=== PATIENT | male | born 1950 | race Caucasian/White ===

== ENCOUNTER 2019-06-13 15:04 | Inpatient (IN) | payer MEDICARE ==
[~2019-06-13] VITALS: Ht 177.8 cm; Wt 136.5 kg
[~2019-06-13 15:04] MED LIST: ASPI-630 PO; BENA40TA3 PO; CLON0.2T PO; DILT120C99 PO; FINA5TAB4 PO; GLYB5TAB3 PO; HYDR-2145 PO; INSU300I SQ; LOVA40TA2 PO; METF10007 PO; METO-247 PO; PIOG15TA42 PO; TAMS0.4C2 PO; VENL75TA PO
[2019-06-13 15:20] VITALS: BP 110/70
[2019-06-13] MEDS ORDERED: IV DEXTROSE 5% 250 ML BAG. IV PRN (16:15)
[2019-06-13] MEDS ORDERED: MAG HYDROX/ALUMINUM HYD/SIMETH 30 ML ORAL.SUSP PO PRN (16:15)
[2019-06-13] MEDS ORDERED: ZOLPIDEM 5 MG TABLET. PO PRN (16:15)
[2019-06-13] MEDS ORDERED: oxyCODONE IR 5 MG TABLET PO PRN (16:15)
[2019-06-13] MEDS ORDERED: MORPHINE SULFATE 2 MG/ML VIAL. IV PRN (16:15)
[2019-06-13] MEDS ORDERED: DEXTROSE 50% 25 GM / 50ML DISP.SYRIN. IV PRN (16:15)
[2019-06-13] MEDS ORDERED: ACETAMINOPHEN 325 MG TABLET. PO PRN (16:15)
[2019-06-13] MEDS ORDERED: MAGNESIUM HYDROXIDE 2,400 MG/30 ML ORAL.SUSP. PO PRN (16:15)
[2019-06-13] MEDS ORDERED: VANCOMYCIN 1GM IVPB FOR OMNI 250 ML IV ONE (16:15)
[2019-06-13] MEDS ORDERED: CHLO25TA2 PO (16:35)
[2019-06-13] MEDS ORDERED: HYDR-2868 PO (16:35)
[2019-06-13] MEDS ORDERED: CARV25TA2 PO (16:35)
[2019-06-13] MEDS ORDERED: AMLO10TA8 PO (16:36)
[2019-06-13] MEDS ORDERED: CLOP75TA PO (16:36)
--- NOTE | 2019-06-13 16:42 | PDOC1 ---
History and Physical Date of Admission Date of Admission DATE: 06/13/19 TIME: 16:37 Identification/Chief Complaint Chief Complaint sent by PCP from clinic bec of DM foot wound Source Source: Caregiver, Chart review, Patient History of Present Illness History of Present Illness HE is a 68 yo white male, DM, HTN, lipdis, hgba1c 7 many mos ago, non healing dm foot wound rt and is bleeding, no fevers, foot is foul smelling, There is a concern if deep to the bone, Known to wound care some yrs back, no recnt abx us e, Sent by PCP Dr Acosta/king josie as needs vasc sx, ID, even amputation or some fort of debridement. Past Medical History Cardiovascular: HTN, Hyperlipidemia Endocrine: Diabetes Past Surgical History Past Surgical History: No pertinent history Family History Family History: Hypertension Social History Smoke: No ALCOHOL: none Drugs: None Current Medications Current Medications Current Medications Al Hydroxide/Mg Hydroxide (Mylanta Plus Xs) 30 ml PRN Q3HRS PRN PO HEARTBURN / GAS; Start 06/13/19 at 16:15 Zolpidem Tartrate (Ambien) 5 mg PRN QHS PRN PO INSOMNIA, MAY REPEAT IN 1HR; Start 06/13/19 at 16:15 Morphine Sulfate (Morphine Sulfate) 1 mg PRN Q1HR PRN IV PAIN; Start 06/13/19 at 16:15 Oxycodone HCl (Roxicodone) 10 mg PRN Q4HRS PRN PO MODERATE PAIN, SEVERE PAIN; Start 06/13/19 at 16:15 Acetaminophen (Tylenol) 650 mg PRN Q6HRS PRN PO Headaches, Temp > 101.5F; Start 06/13/19 at 16:15 Docusate Sodium (Colace) 100 mg BID PO ; Start 06/13/19 at 21:00 Magnesium Hydroxide (Milk Of Magnesia) 2,400 mg PRN Q12HR PRN PO CONSTIPATION; Start 06/13/19 at 16:15 Enoxaparin Sodium (Lovenox 40mg Syringe) 40 mg Q24H SQ ; Start 06/13/19 at 17:00 Insulin Human Lispro (HumaLOG) 0-9 UNITS TIDWMEALS SQ ; Start 06/13/19 at 17:00 Dextrose (Dextrose 50%-Water Syringe) 12.5 gm PRN Q15MIN PRN IV SEE COMMENTS; Start 06/13/19 at 16:15 Dextrose (Iv Dextrose 5%) 250 ml PRN Q15MIN PRN IV SEE COMMENTS; Start 06/13/19 at 16:15 Vancomycin HCl 250 ml @ 250 mls/hr 1X ONCE IV ; Start 06/13/19 at 16:15; Stop 06/13/19 at 17:14 Meropenem 1 gm/ Sodium Chloride 100 ml @ 200 mls/hr Q8HRS IV ; Start 06/13/19 at 22:00; Status UNV Active Scripts Active Reported Clopidogrel (Clopidogrel Bisulfate) 75 Mg Tablet 75 Mg PO DAILY Amlodipine Besylate 10 Mg Tablet 10 Mg PO DAILY Chlorthalidone 25 Mg Tablet 25 Mg PO DAILY Carvedilol 25 Mg Tablet 25 Mg PO BID Hydralazine Hcl 25 Mg Tablet 25 Mg PO BID Toujeo Solostar (Insulin Glargine,Hum.rec.anlog) 300 Unit/1 Ml Insuln.pen 80 Unit SQ HS Tamsulosin Hcl 0.4 Mg Cap.er.24h 0.4 Mg PO DAILY Finasteride 5 Mg Tablet 5 Mg PO DAILY Venlafaxine Hcl 75 Mg Tablet 75 Mg PO BID Metformin Hcl 1,000 Mg Tablet 1,000 Mg PO BID Lovastatin 40 Mg Tablet 20 Mg PO HS Diltiazem 24HR Cd (Diltiazem Hcl) 120 Mg Cap.er.24h 120 Mg PO DAILY Clonidine Hcl 0.2 Mg Tablet 0.2 Mg PO TID Benazepril Hcl 40 Mg Tablet 40 Mg PO DAILY Allergies Allergies: Coded Allergies: Penicillins (Verified Allergy, Severe, Anaphylaxis, 07/17/14) ROS Review of System denies fever, some rt foot pain but all else neg 14 pt reviewed with him Physical Exam General: Alert, Oriented X3, Cooperative, No acute distress HEENT: Atraumatic, PERRLA, EOMI Lungs: Clear to auscultation, Normal air movement Heart: S1S2, RRR, no thrills, no rubs, no gallops, no murmurs Cardiovascular: S1, S2 Abdomen: Normal bowel sounds, Soft, No tenderness, No hepatosplenomegaly, No masses Male Genitals Exam: normal genitalia, normal prostate Rectal Exam: not examined Extremities: No clubbing, No cyanosis, Normal pulses, Other (rt foot wound, foul smelling, long toe nails, deep wound prbing thr bone?) Neuro: Normal gait, Normal speech, Strength at 5/5 X4 ext, Normal tone, Sensation intact, Cranial nerves 3-12 NL, Reflexes 2+ Psych/Mental Status: Mental status NL, Mood NL Vitals Vitals Vital Signs Date Time Temp Pulse Resp B/P (MAP) Pulse Ox O2 Delivery O2 Flow Rate FiO2 06/13/19 15:20 98.9 76 16 110/70 (83) 96 Room Air 98.9 VTE Prophylaxis Ordered VTE Prophylaxis Devices: Yes VTE Pharmacological Prophylaxi: Yes Assessment/Plan Assessment/Plan RT foot DM ulcer/wound r.o osteo DM 2 insulin req HTn Lipids Obesity PCN allergy (anaphylaxis age 17) PLAN IV vanc, merem, ID and vasc sx ESR, cbc, BC, SSI high dose, ESR, lactc acid, hgba1c check xray that foot may eat tonight but npo post mn KELTON Mills RN, MD Jun 13, 2019 16:42
[2019-06-13] MEDS ORDERED: ENOXAPARIN 40 MG/0.4 ML SYRINGE. SQ SCH (17:00)
[2019-06-13] MEDS: INSULIN LISPRO 300 UNITS/3 ML VIAL. SQ SCH (17:00)
[2019-06-13] MEDS: metFORMIN 500 MG TABLET PO SCH (18:01)
--- NOTE | 2019-06-13 18:01 | RAD ---
FOOT RIGHT 2V History: Pain and swelling. Rule out osteomyelitis. Technique: 2 views of the right foot. Comparison: April 24, 2016 Findings: Dorsal foot soft tissue swelling. Multiple flexion deformities. Otherwise, normal alignment. No fracture. First interphalangeal degenerative changes. No radiographic evidence of osteomyelitis. Plantar calcaneal spur. Mild ankle DJD. Impression: 1. No radiographic evidence of osteomyelitis. If persistent cortical concern, MRI can better evaluate. 2. Dorsal foot soft tissue swelling. Electronically signed by: Yusuf Mcfadden DO (06/13/2019 5:57 PM) [facility]
[2019-06-13] MEDS: CARVEDILOL 12.5 MG TABLET. PO SCH (18:02)
[2019-06-13] MEDS: AZTREONAM IV Push 1 GM VIAL. IVP SCH ×2 (18:02→23:35)
[2019-06-13 19:44] VITALS: BP 114/54
[2019-06-13] MEDS: DOCUSATE SODIUM 100 MG CAPSULE. PO SCH (21:00)
[2019-06-13] MEDS: INSULIN GLARGINE SYRINGE. SQ SCH (21:00)
[2019-06-13] MEDS: VENLAFAXINE 75 MG TABLET. PO SCH (21:18)
[2019-06-13] MEDS: cloNIDine HCL 0.2 MG TABLET PO SCH (21:20)
[2019-06-13] MEDS: hydrALAZINE 25 MG TABLET PO SCH (21:20)
[2019-06-13] MEDS: ATORVASTATIN CALCIUM 10 MG TABLET. PO SCH (21:21)
[2019-06-13] MEDS ORDERED: MEROPENEM 1 GM in IV NORMAL SALINE 100ML 100 ML IV SCH (22:00)
[2019-06-13 23:30] VITALS: BP 110/51
[2019-06-14 03:26] VITALS: BP 123/57
[2019-06-14 04:08] LABS: HEMOGLOBIN A1C 7.1 % (4.8-5.6)
[2019-06-14 04:38] LABS: BASO # 0.1 x10^3/uL (0.0-0.2); BASO % 1 % (0-3); EOS # 0.1 x10^3/uL (0.0-0.7); EOS % 1 % (0-3); HEMOGLOBIN 11.8 g/dL (13.0-17.5); LYMPH # 2.3 x10^3/uL (1.0-4.8); LYMPH % 25 % (24-48); MEAN CORPUSCULAR HEMOGLOBIN 27 pg (25-35); MEAN CORPUSCULAR HGB CONC 33 g/dL (31-37); MEAN CORPUSCULAR VOLUME 82 fL (79-100); MONO # 0.9 x10^3/uL (0.0-1.1); MONO % 10 % (0-9); NEUT # 5.8 x10^3/uL (1.8-7.7); NEUT % 63 % (31-73); PLATELET COUNT 340 x10^3/uL (140-400); RED BLOOD COUNT 4.37 x10^6/uL (4.30-5.70); RED CELL DISTRIBUTION WIDTH 14.5 % (11.5-14.5); WHITE BLOOD COUNT 9.2 x10^3/uL (4.0-11.0)
[2019-06-14 04:50] LABS: CALCIUM 8.8 mg/dL (8.5-10.1); CREATININE 1.4 mg/dL (0.7-1.3); GFR 50.4; POTASSIUM 3.8 mmol/L (3.5-5.1)
[2019-06-14] MEDS: AZTREONAM IV Push 1 GM VIAL. IVP SCH (05:58)
[2019-06-14 07:00] VITALS: BP 123/51
[2019-06-14] MEDS: INSULIN LISPRO 300 UNITS/3 ML VIAL. SQ SCH ×3 (07:50→17:00)
[2019-06-14] MEDS: CARVEDILOL 12.5 MG TABLET. PO SCH ×2 (08:00→16:51)
[2019-06-14] MEDS: metFORMIN 500 MG TABLET PO SCH ×2 (08:00→16:51)
[2019-06-14] MEDS: hydrALAZINE 25 MG TABLET PO SCH ×3 (08:26→20:33)
[2019-06-14] MEDS: DOCUSATE SODIUM 100 MG CAPSULE. PO SCH ×2 (08:26→20:31)
[2019-06-14] MEDS: FINASTERIDE 5 MG TABLET. PO SCH ×2 (08:27→11:59)
[2019-06-14] MEDS: LISINOPRIL 20 MG TABLET PO SCH (08:27)
[2019-06-14] MEDS: cloNIDine HCL 0.2 MG TABLET PO SCH ×4 (08:27→20:32)
[2019-06-14] MEDS: amLODIPine BESYLATE 10 MG TABLET PO SCH (08:27)
[2019-06-14] MEDS: TAMSULOSIN 0.4 MG CAP.ER.24H. PO SCH ×2 (08:27→11:59)
[2019-06-14] MEDS: VENLAFAXINE 75 MG TABLET. PO SCH ×2 (08:27→20:32)
[2019-06-14] MEDS: CHLORTHALIDONE 25 MG TABLET. PO SCH (08:27)
[2019-06-14] MEDS: VANCOMYCIN PER PHARMACY MC PRN ×2 (08:43→15:47)
[2019-06-14] MEDS: VANCOMYCIN 2 GM in IV NORMAL SALINE 500ML BAG 500 ML IV SCH ×2 (09:19→20:32)
--- NOTE | 2019-06-14 10:10 | PDOC ---
Infectious Disease Note Vital Sign Vital Signs Vital Signs Date Time Temp Pulse Resp B/P (MAP) Pulse Ox O2 Delivery O2 Flow Rate FiO2 06/14/19 08:00 70 123/51 06/14/19 08:00 Room Air 06/14/19 07:00 98.7 18 98 98.7 Labs Lab Laboratory Tests Test 06/13/19 16:25 06/13/19 17:00 06/13/19 20:28 06/14/19 03:30 Erythrocyte Sedimentation Rate 78 (0-15) Hemoglobin A1c 7.1 % (4.8-5.6) Glucose (Fingerstick) 135 mg/dL (70-99) 125 mg/dL (70-99) White Blood Count 9.2 x10^3/uL (4.0-11.0) Red Blood Count 4.37 x10^6/uL (4.30-5.70) Hemoglobin 11.8 g/dL (13.0-17.5) Hematocrit 36.0 % (39.0-53.0) Mean Corpuscular Volume 82 fL (79-100) Mean Corpuscular Hemoglobin 27 pg (25-35) Mean Corpuscular Hemoglobin Concent 33 g/dL (31-37) Red Cell Distribution Width 14.5 % (11.5-14.5) Platelet Count 340 x10^3/uL (140-400) Neutrophils (%) (Auto) 63 % (31-73) Lymphocytes (%) (Auto) 25 % (24-48) Monocytes (%) (Auto) 10 % (0-9) Eosinophils (%) (Auto) 1 % (0-3) Basophils (%) (Auto) 1 % (0-3) Neutrophils # (Auto) 5.8 x10^3/uL (1.8-7.7) Lymphocytes # (Auto) 2.3 x10^3/uL (1.0-4.8) Monocytes # (Auto) 0.9 x10^3/uL (0.0-1.1) Eosinophils # (Auto) 0.1 x10^3/uL (0.0-0.7) Basophils # (Auto) 0.1 x10^3/uL (0.0-0.2) Prothrombin Time 14.0 SEC (11.7-14.0) Prothromb Time International Ratio 1.1 (0.8-1.1) Sodium Level 137 mmol/L (136-145) Potassium Level 3.8 mmol/L (3.5-5.1) Chloride Level 99 mmol/L (98-107) Carbon Dioxide Level 27 mmol/L (21-32) Anion Gap 11 (6-14) Blood Urea Nitrogen 20 mg/dL (8-26) Creatinine 1.4 mg/dL (0.7-1.3) Estimated GFR (Cockcroft-Gault) 50.4 Glucose Level 104 mg/dL (70-99) Calcium Level 8.8 mg/dL (8.5-10.1) Test 06/14/19 07:44 Glucose (Fingerstick) 123 mg/dL (70-99) Objective Assessment pt seen, consult dictated Plan Plan of Care / CHIDI LORENZO MD Jun 14, 2019 10:10
--- NOTE | 2019-06-14 10:28 | PDOC ---
PROGRESS NOTES History of Present Illness History of Present Illness VTE Prophylaxis Ordered VTE Prophylaxis Devices: Yes VTE Pharmacological Prophylaxi: Yes impression Assessment/Plan RT foot DM ulcer/wound r.o osteo Dorsal foot soft tissue swelling. Multiple flexion deformities. DM 2 insulin req HTn Lipids Obesity PCN allergy (anaphylaxis age 17) high ESR PLAN IV vanc, merem, ID and vasc consults ESR, cbc, BC, SSI high dose, ESR, lactc acid, hgba1c surgery in am planned 06-15 Vitals Vitals Vital Signs Date Time Temp Pulse Resp B/P (MAP) Pulse Ox O2 Delivery O2 Flow Rate FiO2 06/14/19 08:00 70 123/51 06/14/19 08:00 Room Air 06/14/19 07:00 98.7 18 98 98.7 Physical Exam General: Alert, Oriented X3, Cooperative, No acute distress Heart: Regular rate, Normal S1 Lungs: Clear Abdomen: Normal bowel sounds, Soft, No tenderness, No hepatosplenomegaly, No masses Extremities: No clubbing, No cyanosis, Normal pulses, Other (rt foot wound, foul smelling, long toe nails, deep wound prbing thr bone?) Labs LABS FOOT RIGHT 2V History: Pain and swelling. Rule out osteomyelitis. Technique: 2 views of the right foot. Comparison: April 24, 2016 Findings: Dorsal foot soft tissue swelling. Multiple flexion deformities. Otherwise, normal alignment. No fracture. First interphalangeal degenerative changes. No radiographic evidence of osteomyelitis. Plantar calcaneal spur. Mild ankle DJD. Impression: 1. No radiographic evidence of osteomyelitis. If persistent cortical concern, MRI can better evaluate. 2. Dorsal foot soft tissue swelling. Electronically signed by: Kimberlyn Fletcher DO (06/13/2019 5:57 PM) [facility] DICTATED and SIGNED BY: KIMBERLYN FLETCHER DO DATE: 06/13/19 1757 Laboratory Tests Test 06/13/19 16:25 06/13/19 17:00 06/13/19 20:28 06/14/19 03:30 Erythrocyte Sedimentation Rate 78 (0-15) Hemoglobin A1c 7.1 % (4.8-5.6) Glucose (Fingerstick) 135 mg/dL (70-99) 125 mg/dL (70-99) White Blood Count 9.2 x10^3/uL (4.0-11.0) Red Blood Count 4.37 x10^6/uL (4.30-5.70) Hemoglobin 11.8 g/dL (13.0-17.5) Hematocrit 36.0 % (39.0-53.0) Mean Corpuscular Volume 82 fL (79-100) Mean Corpuscular Hemoglobin 27 pg (25-35) Mean Corpuscular Hemoglobin Concent 33 g/dL (31-37) Red Cell Distribution Width 14.5 % (11.5-14.5) Platelet Count 340 x10^3/uL (140-400) Neutrophils (%) (Auto) 63 % (31-73) Lymphocytes (%) (Auto) 25 % (24-48) Monocytes (%) (Auto) 10 % (0-9) Eosinophils (%) (Auto) 1 % (0-3) Basophils (%) (Auto) 1 % (0-3) Neutrophils # (Auto) 5.8 x10^3/uL (1.8-7.7) Lymphocytes # (Auto) 2.3 x10^3/uL (1.0-4.8) Monocytes # (Auto) 0.9 x10^3/uL (0.0-1.1) Eosinophils # (Auto) 0.1 x10^3/uL (0.0-0.7) Basophils # (Auto) 0.1 x10^3/uL (0.0-0.2) Prothrombin Time 14.0 SEC (11.7-14.0) Prothromb Time International Ratio 1.1 (0.8-1.1) Sodium Level 137 mmol/L (136-145) Potassium Level 3.8 mmol/L (3.5-5.1) Chloride Level 99 mmol/L (98-107) Carbon Dioxide Level 27 mmol/L (21-32) Anion Gap 11 (6-14) Blood Urea Nitrogen 20 mg/dL (8-26) Creatinine 1.4 mg/dL (0.7-1.3) Estimated GFR (Cockcroft-Gault) 50.4 Glucose Level 104 mg/dL (70-99) Calcium Level 8.8 mg/dL (8.5-10.1) Test 06/14/19 07:44 Glucose (Fingerstick) 123 mg/dL (70-99) Comment Review of Relevant I have reviewed the following items kimo (where applicable) has been applied. Labs Laboratory Tests Test 06/13/19 16:25 06/13/19 17:00 06/13/19 20:28 06/14/19 03:30 Erythrocyte Sedimentation Rate 78 (0-15) Hemoglobin A1c 7.1 % (4.8-5.6) Glucose (Fingerstick) 135 mg/dL (70-99) 125 mg/dL (70-99) White Blood Count 9.2 x10^3/uL (4.0-11.0) Red Blood Count 4.37 x10^6/uL (4.30-5.70) Hemoglobin 11.8 g/dL (13.0-17.5) Hematocrit 36.0 % (39.0-53.0) Mean Corpuscular Volume 82 fL (79-100) Mean Corpuscular Hemoglobin 27 pg (25-35) Mean Corpuscular Hemoglobin Concent 33 g/dL (31-37) Red Cell Distribution Width 14.5 % (11.5-14.5) Platelet Count 340 x10^3/uL (140-400) Neutrophils (%) (Auto) 63 % (31-73) Lymphocytes (%) (Auto) 25 % (24-48) Monocytes (%) (Auto) 10 % (0-9) Eosinophils (%) (Auto) 1 % (0-3) Basophils (%) (Auto) 1 % (0-3) Neutrophils # (Auto) 5.8 x10^3/uL (1.8-7.7) Lymphocytes # (Auto) 2.3 x10^3/uL (1.0-4.8) Monocytes # (Auto) 0.9 x10^3/uL (0.0-1.1) Eosinophils # (Auto) 0.1 x10^3/uL (0.0-0.7) Basophils # (Auto) 0.1 x10^3/uL (0.0-0.2) Prothrombin Time 14.0 SEC (11.7-14.0) Prothromb Time International Ratio 1.1 (0.8-1.1) Sodium Level 137 mmol/L (136-145) Potassium Level 3.8 mmol/L (3.5-5.1) Chloride Level 99 mmol/L (98-107) Carbon Dioxide Level 27 mmol/L (21-32) Anion Gap 11 (6-14) Blood Urea Nitrogen 20 mg/dL (8-26) Creatinine 1.4 mg/dL (0.7-1.3) Estimated GFR (Cockcroft-Gault) 50.4 Glucose Level 104 mg/dL (70-99) Calcium Level 8.8 mg/dL (8.5-10.1) Test 06/14/19 07:44 Glucose (Fingerstick) 123 mg/dL (70-99) Laboratory Tests Test 06/13/19 16:25 06/13/19 17:00 06/13/19 20:28 06/14/19 03:30 Erythrocyte Sedimentation Rate 78 (0-15) Hemoglobin A1c 7.1 % (4.8-5.6) Glucose (Fingerstick) 135 mg/dL (70-99) 125 mg/dL (70-99) White Blood Count 9.2 x10^3/uL (4.0-11.0) Red Blood Count 4.37 x10^6/uL (4.30-5.70) Hemoglobin 11.8 g/dL (13.0-17.5) Hematocrit 36.0 % (39.0-53.0) Mean Corpuscular Volume 82 fL (79-100) Mean Corpuscular Hemoglobin 27 pg (25-35) Mean Corpuscular Hemoglobin Concent 33 g/dL (31-37) Red Cell Distribution Width 14.5 % (11.5-14.5) Platelet Count 340 x10^3/uL (140-400) Neutrophils (%) (Auto) 63 % (31-73) Lymphocytes (%) (Auto) 25 % (24-48) Monocytes (%) (Auto) 10 % (0-9) Eosinophils (%) (Auto) 1 % (0-3) Basophils (%) (Auto) 1 % (0-3) Neutrophils # (Auto) 5.8 x10^3/uL (1.8-7.7) Lymphocytes # (Auto) 2.3 x10^3/uL (1.0-4.8) Monocytes # (Auto) 0.9 x10^3/uL (0.0-1.1) Eosinophils # (Auto) 0.1 x10^3/uL (0.0-0.7) Basophils # (Auto) 0.1 x10^3/uL (0.0-0.2) Prothrombin Time 14.0 SEC (11.7-14.0) Prothromb Time International Ratio 1.1 (0.8-1.1) Sodium Level 137 mmol/L (136-145) Potassium Level 3.8 mmol/L (3.5-5.1) Chloride Level 99 mmol/L (98-107) Carbon Dioxide Level 27 mmol/L (21-32) Anion Gap 11 (6-14) Blood Urea Nitrogen 20 mg/dL (8-26) Creatinine 1.4 mg/dL (0.7-1.3) Estimated GFR (Cockcroft-Gault) 50.4 Glucose Level 104 mg/dL (70-99) Calcium Level 8.8 mg/dL (8.5-10.1) Test 06/14/19 07:44 Glucose (Fingerstick) 123 mg/dL (70-99) Medications Current Medications Al Hydroxide/Mg Hydroxide (Mylanta Plus Xs) 30 ml PRN Q3HRS PRN PO HEARTBURN / GAS; Start 06/13/19 at 16:15 Zolpidem Tartrate (Ambien) 5 mg PRN QHS PRN PO INSOMNIA, MAY REPEAT IN 1HR; Start 06/13/19 at 16:15 Morphine Sulfate (Morphine Sulfate) 1 mg PRN Q1HR PRN IV PAIN; Start 06/13/19 at 16:15 Oxycodone HCl (Roxicodone) 10 mg PRN Q4HRS PRN PO MODERATE PAIN, SEVERE PAIN; Start 06/13/19 at 16:15 Acetaminophen (Tylenol) 650 mg PRN Q6HRS PRN PO Headaches, Temp > 101.5F; Start 06/13/19 at 16:15 Docusate Sodium (Colace) 100 mg BID PO ; Start 06/13/19 at 21:00 Magnesium Hydroxide (Milk Of Magnesia) 2,400 mg PRN Q12HR PRN PO CONSTIPATION; Start 06/13/19 at 16:15 Enoxaparin Sodium (Lovenox 40mg Syringe) 40 mg Q24H SQ Last administered on 06/13/19at 18:02; Start 06/13/19 at 17:00 Insulin Human Lispro (HumaLOG) 0-9 UNITS TIDWMEALS SQ ; Start 06/13/19 at 17:00 Dextrose (Dextrose 50%-Water Syringe) 12.5 gm PRN Q15MIN PRN IV SEE COMMENTS; Start 06/13/19 at 16:15 Dextrose (Iv Dextrose 5%) 250 ml PRN Q15MIN PRN IV SEE COMMENTS; Start 06/13/19 at 16:15 Vancomycin HCl 250 ml @ 250 mls/hr 1X ONCE IV Last administered on 06/13/19at 18:03; Start 06/13/19 at 16:15; Stop 06/13/19 at 17:14; Status DC Meropenem 1 gm/ Sodium Chloride 100 ml @ 200 mls/hr Q8HRS IV ; Start 06/13/19 at 22:00; Stop 06/13/19 at 17:12; Status DC Aztreonam (Azactam) 1 gm Q8HRS IVP Last administered on 06/14/19at 05:58; Start 06/13/19 at 17:00; Stop 06/14/19 at 10:17; Status DC Amlodipine Besylate (Norvasc) 10 mg DAILY PO ; Start 06/14/19 at 09:00 Chlorthalidone (Thalitone) 25 mg DAILY PO ; Start 06/14/19 at 09:00 Clonidine HCl (Catapres) 0.2 mg TID PO Last administered on 06/13/19at 21:20; Start 06/13/19 at 21:00 Diltiazem HCl (Cardizem 24hr Cd) 120 mg DAILY PO ; Start 06/14/19 at 09:00 Finasteride (Proscar) 5 mg DAILY PO ; Start 06/14/19 at 09:00 Hydralazine HCl (Apresoline) 25 mg BID PO Last administered on 06/13/19at 21:20; Start 06/13/19 at 21:00 Tamsulosin HCl (Flomax) 0.4 mg DAILY PO ; Start 06/14/19 at 09:00 Venlafaxine HCl (Effexor) 75 mg BID PO Last administered on 06/13/19at 21:18; Start 06/13/19 at 21:00 Lisinopril (Prinivil) 40 mg DAILY PO ; Start 06/14/19 at 09:00 Carvedilol (Coreg) 25 mg BIDWMEALS PO Last administered on 06/13/19at 18:02; Start 06/13/19 at 18:00 Insulin Glargine (Lantus Syringe) 80 unit QHS SQ ; Start 06/13/19 at 21:00 Atorvastatin Calcium (Lipitor) 5 mg QHS PO Last administered on 06/13/19at 21:21; Start 06/13/19 at 21:00 Metformin HCl (Glucophage) 1,000 mg BIDWMEALS PO Last administered on 06/13/19at 18:01; Start 06/13/19 at 18:00 Vancomycin HCl (Vanco Per Pharmacy) 1 each PRN DAILY PRN MC SEE COMMENTS Last administered on 06/14/19at 08:43; Start 06/14/19 at 08:45 Vancomycin HCl 2 gm/Sodium Chloride 500 ml @ 250 mls/hr Q12H IV Last administered on 06/14/19at 09:19; Start 06/14/19 at 09:00 Vancomycin HCl (Vancomycin Trough Level) 1 each 1X ONCE MC ; Start 06/15/19 at 20:30; Stop 06/15/19 at 20:31 Multivitamins (Thera M Plus) 1 tab DAILY PO ; Start 06/14/19 at 12:00 Meropenem 500 mg/ Sodium Chloride 50 ml @ 100 mls/hr Q8HRS IV ; Start 06/14/19 at 12:00 Active Scripts Active Reported Clopidogrel (Clopidogrel Bisulfate) 75 Mg Tablet 75 Mg PO DAILY Amlodipine Besylate 10 Mg Tablet 10 Mg PO DAILY Chlorthalidone 25 Mg Tablet 25 Mg PO DAILY Carvedilol 25 Mg Tablet 25 Mg PO BID Hydralazine Hcl 25 Mg Tablet 25 Mg PO BID Toujeo Solostar (Insulin Glargine,Hum.rec.anlog) 300 Unit/1 Ml Insuln.pen 80 Unit SQ HS Tamsulosin Hcl 0.4 Mg Cap.er.24h 0.4 Mg PO DAILY Finasteride 5 Mg Tablet 5 Mg PO DAILY Venlafaxine Hcl 75 Mg Tablet 75 Mg PO BID Metformin Hcl 1,000 Mg Tablet 1,000 Mg PO BID Lovastatin 40 Mg Tablet 20 Mg PO HS Diltiazem 24HR Cd (Diltiazem Hcl) 120 Mg Cap.er.24h 120 Mg PO DAILY Clonidine Hcl 0.2 Mg Tablet 0.2 Mg PO TID Benazepril Hcl 40 Mg Tablet 40 Mg PO DAILY Vitals/I & O Vital Sign - Last 24 Hours 06/13/19 06/13/19 06/13/19 06/13/19 15:20 17:27 18:02 19:30 Temp 98.9 98.9 Pulse 76 76 Resp 16 B/P (MAP) 110/70 (83) 110/70 Pulse Ox 96 O2 Delivery Room Air Room Air Room Air 06/13/19 06/13/19 06/13/19 06/13/19 19:44 21:20 21:20 23:30 Temp 98.8 99.2 98.8 99.2 Pulse 58 58 58 59 Resp 18 16 B/P (MAP) 114/54 (74) 114/54 114/54 110/51 (70) Pulse Ox 99 100 O2 Delivery Room Air Room Air 06/14/19 06/14/19 06/14/19 06/14/19 03:26 07:00 08:00 08:00 Temp 99.1 98.7 99.1 98.7 Pulse 67 70 70 Resp 18 18 B/P (MAP) 123/57 (79) 123/51 (75) 123/51 Pulse Ox 98 98 O2 Delivery Room Air Room Air Room Air Intake and Output 06/13/19 06/13/19 06/14/19 15:00 23:00 07:00 Intake Total 420 ml 0 ml Output Total 1 ml Balance 420 ml -1 ml TYLER HILL MD Jun 14, 2019 10:28
--- NOTE | 2019-06-14 10:44 | CONS ---
DATE OF CONSULTATION: 06/14/2019 REQUESTING PHYSICIAN: Maura Booker MD REASON FOR CONSULTATION: Diabetic foot infection. HISTORY OF PRESENT ILLNESS: This is a 68-year-old gentleman with history of diabetes, who has had right foot big toe ulcer for 3 years. The [facility] part of the 3 years, and apparently, it healed and stayed healed for 2 weeks and then came back again. The patient had been doctoring with his primary care and no problem he has had until about a week ago, it started getting worse. The patient did have cough, cold-like symptoms and flu-like symptoms 2 weeks ago and had fever then, but then it settled down, and then he started noticing much more drainage and redness of the right big toe and foot; hence, he decided to come in. The patient denied any nausea, vomiting, diarrhea, chest pain, shortness of breath, abdominal pain, urinary symptoms or bowel symptoms. PAST MEDICAL HISTORY: Positive for diabetes mellitus, hypertension, hyperlipidemia and chronic ulcer on the right big toe for 3 years. SOCIAL HISTORY: Negative for smoking, alcohol use or drug use. ALLERGIES: LISTED ALLERGIC TO PENICILLIN, CAUSES HIVES. REVIEW OF SYSTEMS: As per HPI, all other systems reviewed and are negative. CURRENT MEDICATIONS: The patient is on vancomycin, meropenem, aztreonam. PHYSICAL EXAMINATION: GENERAL: Alert, oriented gentleman, not in distress. VITAL SIGNS: Stable with a T-max 99.2. HEENT: NAD. NECK: Supple. No JVP, no lymphadenopathy. LUNGS: Clear. HEART: S1, S2 regular. ABDOMEN: Benign. EXTREMITIES: No edema or cyanosis. SKIN: Unremarkable except in the right foot, the big toe is red; has an ulcer on the back of the toe on the plantar surface, where it probes to the bone; there is minimal erythema extending into the foot. Dorsalis pedis is good, palpable. NEUROLOGIC: The patient is alert, awake and appropriate. No focal neurologic deficit. LABORATORY DATA: White count is 9.2, hemoglobin 11.8, platelets are normal. Sed rate is 78. BUN and creatinine are 20 and 1.4. Hemoglobin A1c is 7.1. His x-ray of the foot is unremarkable for acute destruction of the bone. IMPRESSION: 1. Right big toe osteomyelitis. 2. Diabetes. 3. Right big toe and foot cellulitis. 4. Hypertension. 5. Hyperlipidemia. RECOMMENDATIONS: We will use vancomycin and meropenem. Cultures are taken. Supportive care. I did discuss with him about options, amputation versus conservative management to try to save it since there is no destruction of the bone on the x-ray, and with his history, it is possible that this is early osteomyelitis and it can be salvaged; but having ulcer for 3 years, that is concerning and he may eventually end up with amputation. The patient understands the options. The patient wants to try it. We will do the wound care, IV antibiotics, PICC line and we will go from there. Thank you very much, Dr. Booker, for giving me the opportunity to participate in this patient's care. CHIDI LORENZO MD DR: CHALO/nts JOB#: [id number] / [id number]
[2019-06-14 11:00] VITALS: BP 124/62
[2019-06-14] MEDS: MEROPENEM 500 MG in IV NORMAL SALINE 50ML 50 ML IV SCH ×2 (12:15→22:59)
[2019-06-14] MEDS: MULTIVITAMIN with MINERAL TABLET. PO SCH (12:16)
--- NOTE | 2019-06-14 13:53 | PDOC2 ---
CONSULT Date of Consult Date of Consult DATE: 06/14/19 TIME: 13:43 Reason for Consult Reason for Consult: Right first toe ulcer with cellulitis Referring Physician Referring Physician: Dr. Booker Identification/Chief Complaint Chief Complaint Right first toe ulcer with cellulitis Source Source: Chart review, Patient History of Present Illness Reason for Visit: This is a 68 year old male with diabetes who presented with right first toe ulcer with worsening erythema and drainage. The ulcer has been present for 3 years and 4 days ago started drainage. The patient denies fever, chills, or weakness. He denies nausea, vomiting or diarrhea. He denies any lower extremity claudication. 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 Past Medical History Cardiovascular: HTN, Hyperlipidemia Endocrine: Diabetes Past Surgical History Past Surgical History: No pertinent history Family History Family History: Hypertension Social History No ALCOHOL: none Drugs: None Current Medications Current Medications Current Medications Al Hydroxide/Mg Hydroxide (Mylanta Plus Xs) 30 ml PRN Q3HRS PRN PO HEARTBURN / GAS; Start 06/13/19 at 16:15 Zolpidem Tartrate (Ambien) 5 mg PRN QHS PRN PO INSOMNIA, MAY REPEAT IN 1HR; Start 06/13/19 at 16:15 Morphine Sulfate (Morphine Sulfate) 1 mg PRN Q1HR PRN IV PAIN; Start 06/13/19 at 16:15 Oxycodone HCl (Roxicodone) 10 mg PRN Q4HRS PRN PO MODERATE PAIN, SEVERE PAIN; Start 06/13/19 at 16:15 Acetaminophen (Tylenol) 650 mg PRN Q6HRS PRN PO Headaches, Temp > 101.5F; Start 06/13/19 at 16:15 Docusate Sodium (Colace) 100 mg BID PO ; Start 06/13/19 at 21:00 Magnesium Hydroxide (Milk Of Magnesia) 2,400 mg PRN Q12HR PRN PO CONSTIPATION; Start 06/13/19 at 16:15 Enoxaparin Sodium (Lovenox 40mg Syringe) 40 mg Q24H SQ Last administered on 06/13/19at 18:02; Start 06/13/19 at 17:00 Insulin Human Lispro (HumaLOG) 0-9 UNITS TIDWMEALS SQ Last administered on 06/14/19at 12:20; Start 06/13/19 at 17:00 Dextrose (Dextrose 50%-Water Syringe) 12.5 gm PRN Q15MIN PRN IV SEE COMMENTS; Start 06/13/19 at 16:15 Dextrose (Iv Dextrose 5%) 250 ml PRN Q15MIN PRN IV SEE COMMENTS; Start 06/13/19 at 16:15 Vancomycin HCl 250 ml @ 250 mls/hr 1X ONCE IV Last administered on 06/13/19at 18:03; Start 06/13/19 at 16:15; Stop 06/13/19 at 17:14; Status DC Meropenem 1 gm/ Sodium Chloride 100 ml @ 200 mls/hr Q8HRS IV ; Start 06/13/19 at 22:00; Stop 06/13/19 at 17:12; Status DC Aztreonam (Azactam) 1 gm Q8HRS IVP Last administered on 06/14/19at 05:58; Start 06/13/19 at 17:00; Stop 06/14/19 at 10:17; Status DC Amlodipine Besylate (Norvasc) 10 mg DAILY PO ; Start 06/14/19 at 09:00 Chlorthalidone (Thalitone) 25 mg DAILY PO ; Start 06/14/19 at 09:00 Clonidine HCl (Catapres) 0.2 mg TID PO Last administered on 06/14/19at 11:56; Start 06/13/19 at 21:00 Diltiazem HCl (Cardizem 24hr Cd) 120 mg DAILY PO Last administered on 06/14/19at 11:57; Start 06/14/19 at 09:00 Finasteride (Proscar) 5 mg DAILY PO Last administered on 06/14/19at 11:59; Star t 06/14/19 at 09:00 Hydralazine HCl (Apresoline) 25 mg BID PO Last administered on 06/14/19at 11:57; Start 06/13/19 at 21:00 Tamsulosin HCl (Flomax) 0.4 mg DAILY PO Last administered on 06/14/19at 11:59; Start 06/14/19 at 09:00 Venlafaxine HCl (Effexor) 75 mg BID PO Last administered on 06/13/19at 21:18; Start 06/13/19 at 21:00 Lisinopril (Prinivil) 40 mg DAILY PO ; Start 06/14/19 at 09:00 Carvedilol (Coreg) 25 mg BIDWMEALS PO Last administered on 06/13/19at 18:02; Start 06/13/19 at 18:00 Insulin Glargine (Lantus Syringe) 80 unit QHS SQ ; Start 06/13/19 at 21:00 Atorvastatin Calcium (Lipitor) 5 mg QHS PO Last administered on 06/13/19at 21:21; Start 06/13/19 at 21:00 Metformin HCl (Glucophage) 1,000 mg BIDWMEALS PO Last administered on 06/13/19at 18:01; Start 06/13/19 at 18:00 Vancomycin HCl (Vanco Per Pharmacy) 1 each PRN DAILY PRN MC SEE COMMENTS Last administered on 06/14/19at 08:43; Start 06/14/19 at 08:45 Vancomycin HCl 2 gm/Sodium Chloride 500 ml @ 250 mls/hr Q12H IV Last administered on 06/14/19at 09:19; Start 06/14/19 at 09:00 Vancomycin HCl (Vancomycin Trough Level) 1 each 1X ONCE MC ; Start 06/15/19 at 20:30; Stop 06/15/19 at 20:31 Multivitamins (Thera M Plus) 1 tab DAILY PO Last administered on 06/14/19at 12:16; Start 06/14/19 at 12:00 Meropenem 500 mg/ Sodium Chloride 50 ml @ 100 mls/hr Q8HRS IV Last administered on 06/14/19at 12:15; Start 06/14/19 at 12:00 Active Scripts Active Reported Clopidogrel (Clopidogrel Bisulfate) 75 Mg Tablet 75 Mg PO DAILY Amlodipine Besylate 10 Mg Tablet 10 Mg PO DAILY Chlorthalidone 25 Mg Tablet 25 Mg PO DAILY Carvedilol 25 Mg Tablet 25 Mg PO BID Hydralazine Hcl 25 Mg Tablet 25 Mg PO BID Toujeo Solostar (Insulin Glargine,Hum.rec.anlog) 300 Unit/1 Ml Insuln.pen 80 Unit SQ HS Tamsulosin Hcl 0.4 Mg Cap.er.24h 0.4 Mg PO DAILY Finasteride 5 Mg Tablet 5 Mg PO DAILY Venlafaxine Hcl 75 Mg Tablet 75 Mg PO BID Metformin Hcl 1,000 Mg Tablet 1,000 Mg PO BID Lovastatin 40 Mg Tablet 20 Mg PO HS Diltiazem 24HR Cd (Diltiazem Hcl) 120 Mg Cap.er.24h 120 Mg PO DAILY Clonidine Hcl 0.2 Mg Tablet 0.2 Mg PO TID Benazepril Hcl 40 Mg Tablet 40 Mg PO DAILY Allergies Allergies: Coded Allergies: Penicillins (Verified Allergy, Severe, Anaphylaxis, 07/17/14) ROS Review of System GEN: Denies fevers, chills, sweats HEENT: Denies blurred vision, sore throat CV: Denies chest pain or palpitations RESP: Denies shortness of air, cough GI: Denies n/v/d NEURO: No gross deficits MSK: As per HPI Skin: As per HPI Physical Exam Physical Exam Gen.: Alert and oriented 3. Cardiac: Heart rate regular. Lungs: CTA, nonlabored respirations. Abdomen: Soft, obese, nontender, nondistended, no palpable masses. Extremities:2+ bilateral radial pulses, 2+ bilateral femoral, DP and PT pulses. Skin: Right first toe cellulitis, erythema and ulcer that penetrates to bone with drainage. Neurological: Motor and sensation intact Vitals VITALS Vital Signs Date Time Temp Pulse Resp B/P (MAP) Pulse Ox O2 Delivery O2 Flow Rate FiO2 06/14/19 11:57 70 124/62 06/14/19 11:00 99.7 18 95 Room Air 99.7 Labs Labs Laboratory Tests Test 06/13/19 16:25 06/13/19 17:00 06/13/19 20:28 06/14/19 03:30 Erythrocyte Sedimentation Rate 78 (0-15) Hemoglobin A1c 7.1 % (4.8-5.6) Glucose (Fingerstick) 135 mg/dL (70-99) 125 mg/dL (70-99) White Blood Count 9.2 x10^3/uL (4.0-11.0) Red Blood Count 4.37 x10^6/uL (4.30-5.70) Hemoglobin 11.8 g/dL (13.0-17.5) Hematocrit 36.0 % (39.0-53.0) Mean Corpuscular Volume 82 fL (79-100) Mean Corpuscular Hemoglobin 27 pg (25-35) Mean Corpuscular Hemoglobin Concent 33 g/dL (31-37) Red Cell Distribution Width 14.5 % (11.5-14.5) Platelet Count 340 x10^3/uL (140-400) Neutrophils (%) (Auto) 63 % (31-73) Lymphocytes (%) (Auto) 25 % (24-48) Monocytes (%) (Auto) 10 % (0-9) Eosinophils (%) (Auto) 1 % (0-3) Basophils (%) (Auto) 1 % (0-3) Neutrophils # (Auto) 5.8 x10^3/uL (1.8-7.7) Lymphocytes # (Auto) 2.3 x10^3/uL (1.0-4.8) Monocytes # (Auto) 0.9 x10^3/uL (0.0-1.1) Eosinophils # (Auto) 0.1 x10^3/uL (0.0-0.7) Basophils # (Auto) 0.1 x10^3/uL (0.0-0.2) Prothrombin Time 14.0 SEC (11.7-14.0) Prothromb Time International Ratio 1.1 (0.8-1.1) Sodium Level 137 mmol/L (136-145) Potassium Level 3.8 mmol/L (3.5-5.1) Chloride Level 99 mmol/L (98-107) Carbon Dioxide Level 27 mmol/L (21-32) Anion Gap 11 (6-14) Blood Urea Nitrogen 20 mg/dL (8-26) Creatinine 1.4 mg/dL (0.7-1.3) Estimated GFR (Cockcroft-Gault) 50.4 Glucose Level 104 mg/dL (70-99) Calcium Level 8.8 mg/dL (8.5-10.1) Test 06/14/19 07:44 06/14/19 11:29 Glucose (Fingerstick) 123 mg/dL (70-99) 210 mg/dL (70-99) Laboratory Tests Test 06/13/19 16:25 06/13/19 17:00 06/13/19 20:28 06/14/19 03:30 Erythrocyte Sedimentation Rate 78 (0-15) Hemoglobin A1c 7.1 % (4.8-5.6) Glucose (Fingerstick) 135 mg/dL (70-99) 125 mg/dL (70-99) White Blood Count 9.2 x10^3/uL (4.0-11.0) Red Blood Count 4.37 x10^6/uL (4.30-5.70) Hemoglobin 11.8 g/dL (13.0-17.5) Hematocrit 36.0 % (39.0-53.0) Mean Corpuscular Volume 82 fL (79-100) Mean Corpuscular Hemoglobin 27 pg (25-35) Mean Corpuscular Hemoglobin Concent 33 g/dL (31-37) Red Cell Distribution Width 14.5 % (11.5-14.5) Platelet Count 340 x10^3/uL (140-400) Neutrophils (%) (Auto) 63 % (31-73) Lymphocytes (%) (Auto) 25 % (24-48) Monocytes (%) (Auto) 10 % (0-9) Eosinophils (%) (Auto) 1 % (0-3) Basophils (%) (Auto) 1 % (0-3) Neutrophils # (Auto) 5.8 x10^3/uL (1.8-7.7) Lymphocytes # (Auto) 2.3 x10^3/uL (1.0-4.8) Monocytes # (Auto) 0.9 x10^3/uL (0.0-1.1) Eosinophils # (Auto) 0.1 x10^3/uL (0.0-0.7) Basophils # (Auto) 0.1 x10^3/uL (0.0-0.2) Prothrombin Time 14.0 SEC (11.7-14.0) Prothromb Time International Ratio 1.1 (0.8-1.1) Sodium Level 137 mmol/L (136-145) Potassium Level 3.8 mmol/L (3.5-5.1) Chloride Level 99 mmol/L (98-107) Carbon Dioxide Level 27 mmol/L (21-32) Anion Gap 11 (6-14) Blood Urea Nitrogen 20 mg/dL (8-26) Creatinine 1.4 mg/dL (0.7-1.3) Estimated GFR (Cockcroft-Gault) 50.4 Glucose Level 104 mg/dL (70-99) Calcium Level 8.8 mg/dL (8.5-10.1) Test 06/14/19 07:44 06/14/19 11:29 Glucose (Fingerstick) 123 mg/dL (70-99) 210 mg/dL (70-99) Assessment/Plan Assessment/Plan 68 year old male with right first toe ulceration and cellulitis. Patient seen and examined with Dr. De León. The patient has adequate arterial circulation for wound healing. Recommend right first toe open amputation with wound vac placement. Will schedule in the near future. - Recommend continued antibiotics per ID. - Continue local wound care. - Strict off-loading after amputation - WCN consult for wound vac therapy - for discharge planning, will need home vac and antibiotics Patient seen and examined with Remigio Gonzalez on 06/14/2019, agree with the above note. 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 He has palpable pedal pulses. Recommend a right 1st toe open amputation and wound vac dressing. Continue antibiotics per ID. REMIGIO Castro MD, APRN Jun 14, 2019 13:53 CHERELLE DE LEÓN MD Jun 14, 2019 13:58
--- NOTE | 2019-06-14 14:42 | NUR ---
Wound Care Pt seen for wound care consultation re: a R great toe DFU. Vascular Surgery planning for open amputation tomorrow, with vac placement, will f/u after surgery. TONY via [employer] is 1.37, palpable pedal pulse. Sopke with pt about f/u in [facility] after discharge for continued wound care and wound vac therapy, pt is a former pt of Dr. Fowler and would like to f/u in clinic. Will f/u after surgery, per Vascular orders.
[2019-06-14 15:00] VITALS: BP 129/54
--- NOTE | 2019-06-14 15:22 | NUR ---
SW following. Discussed with RN, pt is from home. PICC line placed today, will need senior living IV abx. SW awaiting confirmation of which abx will be needed - currently on IV vanco and meropenem . Pt has no PT/OT needs. [facility] is preferred provider for [facility] which is pt's insurance. SW will continue to follow. RN notified.
[2019-06-14] MEDS ORDERED: INSULIN LISPRO 100 UNIT/ML 3ML VIAL for OP,RR ONLY. SQ PRN (16:00)
[2019-06-14] MEDS: ENOXAPARIN 40 MG/0.4 ML SYRINGE. SQ SCH (16:21)
[2019-06-14 19:00] VITALS: BP 156/64
[2019-06-14] MEDS: INSULIN GLARGINE SYRINGE. SQ SCH (20:30)
[2019-06-14] MEDS: ATORVASTATIN CALCIUM 10 MG TABLET. PO SCH (20:32)
[2019-06-14 23:00] VITALS: BP 119/75
[2019-06-15] MEDS: ENOXAPARIN 40 MG/0.4 ML SYRINGE. SQ SCH ×2 (01:00→16:34)
[2019-06-15 03:00] VITALS: BP 127/71
[2019-06-15 04:28] LABS: CREATININE 1.3 mg/dL (0.7-1.3); GFR 54.9
[2019-06-15] MEDS: MEROPENEM 500 MG in IV NORMAL SALINE 50ML 50 ML IV SCH ×2 (06:13→14:57)
[2019-06-15 07:00] VITALS: BP 153/68
[2019-06-15] MEDS ORDERED: fentaNYL PF VIAL 100 MCG/2 ML VIAL IV PRN ×2 (07:00)
[2019-06-15] MEDS ORDERED: HYDROmorphone 2 MG/ML VIAL IV PRN (07:00)
[2019-06-15] MEDS ORDERED: PROCHLORPERAZINE 10 MG/2 ML VIAL. IV PRN (07:00)
[2019-06-15] MEDS ORDERED: IV RINGERS,LACTATED 1000ML 1,000 ML IV SCH (07:00)
[2019-06-15] MEDS ORDERED: ONDANSETRON PF 4 MG/2 ML VIAL. IV PRN (07:00)
[2019-06-15] MEDS ORDERED: MORPHINE SULFATE 2 MG/ML VIAL. IV PRN (07:00)
[2019-06-15] MEDS: FINASTERIDE 5 MG TABLET. PO SCH ×2 (07:17→14:56)
[2019-06-15] MEDS: LISINOPRIL 20 MG TABLET PO SCH (07:17)
[2019-06-15] MEDS: DOCUSATE SODIUM 100 MG CAPSULE. PO SCH ×3 (07:17→21:18)
[2019-06-15] MEDS: VENLAFAXINE 75 MG TABLET. PO SCH ×2 (07:17→21:18)
[2019-06-15] MEDS: CHLORTHALIDONE 25 MG TABLET. PO SCH (07:17)
[2019-06-15] MEDS: amLODIPine BESYLATE 10 MG TABLET PO SCH (07:17)
[2019-06-15] MEDS: TAMSULOSIN 0.4 MG CAP.ER.24H. PO SCH ×2 (07:17→14:56)
[2019-06-15] MEDS: metFORMIN 500 MG TABLET PO SCH ×2 (07:18→16:50)
[2019-06-15] MEDS: MULTIVITAMIN with MINERAL TABLET. PO SCH (07:18)
[2019-06-15] MEDS: INSULIN LISPRO 300 UNITS/3 ML VIAL. SQ SCH ×3 (08:00→16:55)
--- NOTE | 2019-06-15 08:07 | EKG ---
[facility] [address] [place] [address] Test Date: 2019-06-15 Test Time: 07:39:33 Pat Name: RITIKA RODAS Department: Room: 428 1 Gender: M Manager User Interface: RONALD : 1950 Requested By: TONY OCHOA Order Number: [id number] Reading MD: Measurements Intervals [place] Rate: 64 P: 0 CA: 300 QRS: 39 QRSD: 80 T: 36 QT: 424 QTc: 442 Interpretive Statements SINUS RHYTHM PROLONGED CA INTERVAL ABNORMAL ECG RI6.02 No previous ECG available for comparison
[2019-06-15] MEDS: VANCOMYCIN 2 GM in IV NORMAL SALINE 500ML BAG 500 ML IV SCH (08:32)
[2019-06-15] MEDS: CARVEDILOL 12.5 MG TABLET. PO SCH ×2 (08:33→16:50)
[2019-06-15] MEDS: hydrALAZINE 25 MG TABLET PO SCH ×2 (09:00→21:18)
[2019-06-15] MEDS: cloNIDine HCL 0.2 MG TABLET PO SCH ×3 (09:00→21:18)
--- NOTE | 2019-06-15 09:17 | PDOC ---
Infectious Disease Note Subjective Subjective pt is feeling better, now ready for amputation ROS ROS no n/v/d/sob Vital Sign Vital Signs Vital Signs Date Time Temp Pulse Resp B/P (MAP) Pulse Ox O2 Delivery O2 Flow Rate FiO2 06/15/19 08:33 71 153/68 06/15/19 07:00 98.1 16 98 Room Air 98.1 Physical Exam PHYSICAL EXAM PHYSICAL EXAMINATION: GENERAL: Alert, oriented gentleman, not in distress. VITAL SIGNS: Stable with a T-max 99.2. HEENT: NAD. NECK: Supple. No JVP, no lymphadenopathy. LUNGS: Clear. HEART: S1, S2 regular. ABDOMEN: Benign. EXTREMITIES: No edema or cyanosis. SKIN: Unremarkable except in the right foot, the big toe is red; has an ulcer on the back of the toe on the plantar surface, where it probes to the bone; there is minimal erythema extending into the foot. Dorsalis pedis is good, palpable. NEUROLOGIC: The patient is alert, awake and appropriate. No focal neurologic deficit. Labs Lab Laboratory Tests Test 06/14/19 11:29 06/14/19 16:46 06/14/19 20:21 06/15/19 03:55 Glucose (Fingerstick) 210 mg/dL (70-99) 146 mg/dL (70-99) 146 mg/dL (70-99) Creatinine 1.3 mg/dL (0.7-1.3) Estimated GFR (Cockcroft-Gault) 54.9 Test 06/15/19 07:29 Glucose (Fingerstick) 138 mg/dL (70-99) Objective Assessment IMPRESSION: 1. Right big toe osteomyelitis. ( probes to bone ) 2. Diabetes. 3. Right big toe and foot cellulitis. 4. Hypertension. 5. Hyperlipidemia. Plan Plan of Care pt now agreed for surgery/amputation scheduled for today cont antibiotics CHIDI LORENZO MD Jun 15, 2019 09:17
[2019-06-15] MEDS: VANCOMYCIN PER PHARMACY MC PRN (10:11)
--- NOTE | 2019-06-15 10:22 | NUR ---
SW following. Discussed with RN, pt having amputation today, may not need mcc IV abx at discharge anymore. Probable wound vac/ wound care. SW will continue to follow.
--- NOTE | 2019-06-15 10:38 | PDOC ---
PROGRESS NOTES History of Present Illness History of Present Illness VTE Prophylaxis Ordered VTE Prophylaxis Devices: Yes VTE Pharmacological Prophylaxi: Yes impression Assessment/Plan RT foot DM ulcer/wound r.o osteo Dorsal foot soft tissue swelling. Multiple flexion deformities. DM 2 insulin req HTn Lipids Obesity PCN allergy (anaphylaxis age 17) high ESR=78 PLAN IV vanc, merem, continue ID and vasc consults ESR, cbc, BC, SSI high dose, ESR, lactic acid, hgba1c surgery planned 1-30 d/w rn Vitals Vitals Vital Signs Date Time Temp Pulse Resp B/P (MAP) Pulse Ox O2 Delivery O2 Flow Rate FiO2 06/15/19 08:33 71 153/68 06/15/19 08:00 Room Air 06/15/19 07:00 98.1 16 98 98.1 Physical Exam Physical Exam PHYSICAL EXAMINATION: GENERAL: Alert, oriented gentleman, not in distress. VITAL SIGNS: Stable with a T-max 99.2. HEENT: NAD. NECK: Supple. No JVP, no lymphadenopathy. LUNGS: Clear. HEART: S1, S2 regular. ABDOMEN: Benign. EXTREMITIES: No edema or cyanosis. SKIN: Unremarkable except in the right foot, the big toe is red; has an ulcer on the back of the toe on the plantar surface, where it probes to the bone; there is minimal erythema extending into the foot. Dorsalis pedis is good, palpable. NEUROLOGIC: The patient is alert, awake and appropriate. No focal neurologic deficit. General: Alert, Oriented X3, Cooperative, No acute distress Heart: Regular rate, Normal S1, Normal S2 Lungs: Clear Abdomen: Normal bowel sounds, Soft, No tenderness, No hepatosplenomegaly, No masses Extremities: No clubbing, No cyanosis, Normal pulses, Other (rt foot wound, foul smelling, long toe nails, deep wound prbing thr bone?) Labs LABS Laboratory Tests Test 06/14/19 11:29 06/14/19 16:46 06/14/19 20:21 06/15/19 03:55 Glucose (Fingerstick) 210 mg/dL (70-99) 146 mg/dL (70-99) 146 mg/dL (70-99) Creatinine 1.3 mg/dL (0.7-1.3) Estimated GFR (Cockcroft-Gault) 54.9 Test 06/15/19 07:29 Glucose (Fingerstick) 138 mg/dL (70-99) Comment Review of Relevant I have reviewed the following items kimo (where applicable) has been applied. Labs Laboratory Tests Test 06/13/19 16:25 06/13/19 17:00 06/13/19 20:28 06/14/19 03:30 Erythrocyte Sedimentation Rate 78 (0-15) Hemoglobin A1c 7.1 % (4.8-5.6) Glucose (Fingerstick) 135 mg/dL (70-99) 125 mg/dL (70-99) White Blood Count 9.2 x10^3/uL (4.0-11.0) Red Blood Count 4.37 x10^6/uL (4.30-5.70) Hemoglobin 11.8 g/dL (13.0-17.5) Hematocrit 36.0 % (39.0-53.0) Mean Corpuscular Volume 82 fL (79-100) Mean Corpuscular Hemoglobin 27 pg (25-35) Mean Corpuscular Hemoglobin Concent 33 g/dL (31-37) Red Cell Distribution Width 14.5 % (11.5-14.5) Platelet Count 340 x10^3/uL (140-400) Neutrophils (%) (Auto) 63 % (31-73) Lymphocytes (%) (Auto) 25 % (24-48) Monocytes (%) (Auto) 10 % (0-9) Eosinophils (%) (Auto) 1 % (0-3) Basophils (%) (Auto) 1 % (0-3) Neutrophils # (Auto) 5.8 x10^3/uL (1.8-7.7) Lymphocytes # (Auto) 2.3 x10^3/uL (1.0-4.8) Monocytes # (Auto) 0.9 x10^3/uL (0.0-1.1) Eosinophils # (Auto) 0.1 x10^3/uL (0.0-0.7) Basophils # (Auto) 0.1 x10^3/uL (0.0-0.2) Prothrombin Time 14.0 SEC (11.7-14.0) Prothromb Time International Ratio 1.1 (0.8-1.1) Sodium Level 137 mmol/L (136-145) Potassium Level 3.8 mmol/L (3.5-5.1) Chloride Level 99 mmol/L (98-107) Carbon Dioxide Level 27 mmol/L (21-32) Anion Gap 11 (6-14) Blood Urea Nitrogen 20 mg/dL (8-26) Creatinine 1.4 mg/dL (0.7-1.3) Estimated GFR (Cockcroft-Gault) 50.4 Glucose Level 104 mg/dL (70-99) Calcium Level 8.8 mg/dL (8.5-10.1) Test 06/14/19 07:44 06/14/19 11:29 06/14/19 16:46 06/14/19 20:21 Glucose (Fingerstick) 123 mg/dL (70-99) 210 mg/dL (70-99) 146 mg/dL (70-99) 146 mg/dL (70-99) Test 06/15/19 03:55 06/15/19 07:29 Creatinine 1.3 mg/dL (0.7-1.3) Estimated GFR (Cockcroft-Gault) 54.9 Glucose (Fingerstick) 138 mg/dL (70-99) Laboratory Tests Test 06/14/19 11:29 06/14/19 16:46 06/14/19 20:21 06/15/19 03:55 Glucose (Fingerstick) 210 mg/dL (70-99) 146 mg/dL (70-99) 146 mg/dL (70-99) Creatinine 1.3 mg/dL (0.7-1.3) Estimated GFR (Cockcroft-Gault) 54.9 Test 06/15/19 07:29 Glucose (Fingerstick) 138 mg/dL (70-99) Medications Current Medications Al Hydroxide/Mg Hydroxide (Mylanta Plus Xs) 30 ml PRN Q3HRS PRN PO HEARTBURN / GAS; Start 06/13/19 at 16:15 Zolpidem Tartrate (Ambien) 5 mg PRN QHS PRN PO INSOMNIA, MAY REPEAT IN 1HR; Start 06/13/19 at 16:15 Morphine Sulfate (Morphine Sulfate) 1 mg PRN Q1HR PRN IV PAIN; Start 06/13/19 at 16:15 Oxycodone HCl (Roxicodone) 10 mg PRN Q4HRS PRN PO MODERATE PAIN, SEVERE PAIN; Start 06/13/19 at 16:15 Acetaminophen (Tylenol) 650 mg PRN Q6HRS PRN PO Headaches, Temp > 101.5F; Start 06/13/19 at 16:15 Docusate Sodium (Colace) 100 mg BID PO ; Start 06/13/19 at 21:00 Magnesium Hydroxide (Milk Of Magnesia) 2,400 mg PRN Q12HR PRN PO CONSTIPATION; Start 06/13/19 at 16:15 Enoxaparin Sodium (Lovenox 40mg Syringe) 40 mg Q24H SQ Last administered on 06/13/19at 18:02; Start 06/13/19 at 17:00; Stop 06/14/19 at 15:43; Status DC Insulin Human Lispro (HumaLOG) 0-9 UNITS TIDWMEALS SQ Last administered on 06/14/19at 12:20; Start 06/13/19 at 17:00 Dextrose (Dextrose 50%-Water Syringe) 12.5 gm PRN Q15MIN PRN IV SEE COMMENTS; Start 06/13/19 at 16:15 Dextrose (Iv Dextrose 5%) 250 ml PRN Q15MIN PRN IV SEE COMMENTS; Start 06/13/19 at 16:15 Vancomycin HCl 250 ml @ 250 mls/hr 1X ONCE IV Last administered on 06/13/19at 18:03; Start 06/13/19 at 16:15; Stop 06/13/19 at 17:14; Status DC Meropenem 1 gm/ Sodium Chloride 100 ml @ 200 mls/hr Q8HRS IV ; Start 06/13/19 at 22:00; Stop 06/13/19 at 17:12; Status DC Aztreonam (Azactam) 1 gm Q8HRS IVP Last administered on 06/14/19at 05:58; Start 06/13/19 at 17:00; Stop 06/14/19 at 10:17; Status DC Amlodipine Besylate (Norvasc) 10 mg DAILY PO ; Start 06/14/19 at 09:00 Chlorthalidone (Thalitone) 25 mg DAILY PO ; Start 06/14/19 at 09:00 Clonidine HCl (Catapres) 0.2 mg TID PO Last administered on 06/14/19at 20:32; Start 06/13/19 at 21:00 Diltiazem HCl (Cardizem 24hr Cd) 120 mg DAILY PO Last administered on 06/14/19 11:57; Start 06/14/19 at 09:00 Finasteride (Proscar) 5 mg DAILY PO Last administered on 06/14/19 11:59; Start 06/14/19 at 09:00 Hydralazine HCl (Apresoline) 25 mg BID PO Last administered on 06/14/19 20:33; Start 06/13/19 at 21:00 Tamsulosin HCl (Flomax) 0.4 mg DAILY PO Last administered on 06/14/19 11:59; Start 06/14/19 at 09:00 Venlafaxine HCl (Effexor) 75 mg BID PO Last administered on 06/14/19 20:32; Start 06/13/19 at 21:00 Lisinopril (Prinivil) 40 mg DAILY PO ; Start 06/14/19 at 09:00 Carvedilol (Coreg) 25 mg BIDWMEALS PO Last administered on 06/15/19 08:33; Start 06/13/19 at 18:00 Insulin Glargine (Lantus Syringe) 80 unit QHS SQ ; Start 06/13/19 at 21:00 Atorvastatin Calcium (Lipitor) 5 mg QHS PO Last administered on 06/14/19at 20:32; Start 06/13/19 at 21:00 Metformin HCl (Glucophage) 1,000 mg BIDWMEALS PO Last administered on 06/14/19at 16:51; Start 06/13/19 at 18:00 Vancomycin HCl (Vanco Per Pharmacy) 1 each PRN DAILY PRN MC SEE COMMENTS Last administered on 06/15/19at 10:11; Start 06/14/19 at 08:45 Vancomycin HCl 2 gm/Sodium Chloride 500 ml @ 250 mls/hr Q12H IV Last admini stered on 06/15/19 08:32; Start 06/14/19 at 09:00; Stop 06/15/19 at 09:18; Status DC Vancomycin HCl (Vancomycin Trough Level) 1 each 1X ONCE MC ; Start 06/15/19 at 20:30; Stop 06/15/19 at 20:31 Multivitamins (Thera M Plus) 1 tab DAILY PO Last administered on 06/14/19at 12:16; Start 06/14/19 at 12:00 Meropenem 500 mg/ Sodium Chloride 50 ml @ 100 mls/hr Q8HRS IV Last administere d on 06/15/19at 06:13; Start 06/14/19 at 12:00 Enoxaparin Sodium (Lovenox 40mg Syringe) 40 mg Q12H SQ ; Start 06/14/19 at 17:00 Ondansetron HCl (Zofran) 4 mg PRN Q6HRS PRN IV NAUSEA/VOMITING; Start 06/15/19 at 07:00; Stop 06/16/19 at 06:59 Fentanyl Citrate (Fentanyl 2ml Vial) 25 mcg PRN Q5MIN PRN IV MILD PAIN 1-3; Start 06/15/19 at 07:00; Stop 06/16/19 at 06:59 Fentanyl Citrate (Fentanyl 2ml Vial) 50 mcg PRN Q5MIN PRN IV MODERATE TO SEVERE PAIN; Start 06/15/19 at 07:00; Stop 06/16/19 at 06:59 Morphine Sulfate (Morphine Sulfate) 1 mg PRN Q10MIN PRN IV SEVERE PAIN 7-10; Start 06/15/19 at 07:00; Stop 06/16/19 at 06:59 Ringer's Solution 1,000 ml @ 30 mls/hr Q24H IV ; Start 06/15/19 at 07:00; Stop 06/15/19 at 18:59 Hydromorphone HCl (Dilaudid) 0.5 mg PRN Q10MIN PRN IV SEV PAIN, Second choice; Start 06/15/19 at 07:00; Stop 06/16/19 at 06:59 Prochlorperazine Edisylate (Compazine) 5 mg PACU PRN PRN IV NAUSEA, MRX1; Start 06/15/19 at 07:00; Stop 06/16/19 at 06:59 Insulin Human Lispro (HumaLOG VIAL for OP,RR ONLY) 0-10 units PRN Q1HR PRN SQ PER PROTOCOL; Start 06/14/19 at 16:00; Stop 06/15/19 at 15:59 Vancomycin HCl 1 gm/Sodium Chloride 250 ml @ 250 mls/hr Q12H IV ; Start 06/15/19 at 21:00 Active Scripts Active Reported Clopidogrel (Clopidogrel Bisulfate) 75 Mg Tablet 75 Mg PO DAILY Amlodipine Besylate 10 Mg Tablet 10 Mg PO DAILY Chlorthalidone 25 Mg Tablet 25 Mg PO DAILY Carvedilol 25 Mg Tablet 25 Mg PO BID Hydralazine Hcl 25 Mg Tablet 25 Mg PO BID Dre Olivaresjanettear (Insulin Glargine,Hum.rec.anlog) 300 Unit/1 Ml Insuln.pen 80 Unit SQ HS Tamsulosin Hcl 0.4 Mg Cap.er.24h 0.4 Mg PO DAILY Finasteride 5 Mg Tablet 5 Mg PO DAILY Venlafaxine Hcl 75 Mg Tablet 75 Mg PO BID Metformin Hcl 1,000 Mg Tablet 1,000 Mg PO BID Lovastatin 40 Mg Tablet 20 Mg PO HS Diltiazem 24HR Cd (Diltiazem Hcl) 120 Mg Cap.er.24h 120 Mg PO DAILY Clonidine Hcl 0.2 Mg Tablet 0.2 Mg PO TID Benazepril Hcl 40 Mg Tablet 40 Mg PO DAILY Vitals/I & O Vital Sign - Last 24 Hours 06/14/19 06/14/19 06/14/19 06/14/19 11:00 11:56 11:57 11:57 Temp 99.7 99.7 Pulse 70 70 70 70 Resp 18 B/P (MAP) 124/62 (82) 124/62 124/62 124/62 Pulse Ox 95 O2 Delivery Room Air 06/14/19 06/14/19 06/14/19 06/14/19 15:00 16:51 19:00 20:00 Temp 98.4 98.6 98.4 98.6 Pulse 78 78 58 Resp 18 18 B/P (MAP) 129/54 (79) 129/54 156/64 (94) Pulse Ox 95 98 O2 Delivery Room Air Room Air Room Air 06/14/19 06/14/19 06/14/19 06/15/19 20:32 20:33 23:00 03:00 Temp 98.9 98.9 98.9 98.9 Pulse 58 58 72 56 Resp 18 18 B/P (MAP) 156/64 156/64 119/75 (90) 127/71 (89) Pulse Ox 95 95 O2 Delivery Room Air Room Air 06/15/19 06/15/19 06/15/19 07:00 08:00 08:33 Temp 98.1 98.1 Pulse 71 71 Resp 16 B/P (MAP) 153/68 (96) 153/68 Pulse Ox 98 O2 Delivery Room Air Room Air Intake and Output 06/14/19 06/14/19 06/15/19 15:00 23:00 07:00 Intake Total 500 ml 50 ml Balance 500 ml 50 ml TYLER HILL MD Jun 15, 2019 10:38
[2019-06-15] MEDS ORDERED: PROPOFOL 20 ML IV ONE (12:05)
[2019-06-15] MEDS ORDERED: ONDANSETRON PF 4 MG/2 ML VIAL. ONE (12:05)
[2019-06-15] MEDS ORDERED: DEXAMETHASONE SOD PHOS 4 MG/ML VIAL ONE (12:05)
[2019-06-15] MEDS ORDERED: LIDOCAINE 2% PF 5 ML VIAL. ONE (12:05)
[2019-06-15] MEDS ORDERED: SEVOFLURANE 31 TO 60 MINUTES. IH ONE (12:59)
[2019-06-15] MEDS ORDERED: PHENYLEPHRINE in 0.9% NACL PF 1 MG/10 ML SYRINGE. IV ONE (12:59)
[2019-06-15] MEDS ORDERED: BACITRACIN 50,000 UNIT in IV NORMAL SALINE 250ML 250 ML IRR ONE (13:00)
[2019-06-15] MEDS ORDERED: BUPIVACAINE MPF 0.25% 30 ML VIAL. ONE (13:02)
--- NOTE | 2019-06-15 13:45 | PDOC ---
BRIEF OPERATIVE NOTE Date: Jun 15, 2019 Pre-Op Diagnosis Right first toe ulcer with cellulitis Post-Op Diagnosis same Procedure Performed Right first toe closed ray amputation Surgeon Dr. Root Anesthesia Type: MAC, Local Blood Loss minimal Specimens Obtained right first toe Findings pulsatile bleeding Complications none Operative Note see dictated note REMIGIO FERRER APRN Jun 15, 2019 13:45
[2019-06-15 16:52] VITALS: BP 137/79
[2019-06-15 17:00] VITALS: BP 154/76
[2019-06-15 19:00] VITALS: BP 133/53
[2019-06-15 20:54] LABS: VANC TR 21.8 mcg/mL (10.0-20.0)
[2019-06-15] MEDS ORDERED: VANCOMYCIN 1 GM in IV NORMAL SALINE 250ML 250 ML IV SCH (21:00)
[2019-06-15] MEDS: ATORVASTATIN CALCIUM 10 MG TABLET. PO SCH (21:17)
[2019-06-15] MEDS: INSULIN GLARGINE SYRINGE. SQ SCH (21:33)
[2019-06-15 23:00] VITALS: BP 157/64
--- NOTE | 2019-06-15 23:07 | OP ---
DATE OF SURGERY: 06/15/2019 PREOPERATIVE DIAGNOSIS: Osteomyelitis, right metatarsophalangeal joint, greater toe. POSTOPERATIVE DIAGNOSIS: Osteomyelitis, right metatarsophalangeal joint, greater toe. OPERATION PERFORMED: Ray amputation with primary closure. SURGEON: Jesús Root MD ANESTHESIA: General. INDICATION: This is a 68-year-old gentleman, diabetic with an ulcer on the medial aspect of the right great toe, extending into the metatarsophalangeal joint. He has bounding pedal pulses. DESCRIPTION OF PROCEDURE: The patient was placed in the supine position and the right foot was prepped and draped circumferentially with Betadine. A mosquito was placed within the open wound, which tracked directly into the joint. For this reason, a tennis racquet type incision was made with a longitudinal portion of the incision on the lateral aspect of the metatarsal. The incision was extended circumferentially around the base of the great toe. There was excellent bleeding. The great toe and metatarsal head were resected. The portion of the metatarsal head was sent for margin culture. Again, the wound was extremely well vascularized and appeared clean following resection. Wound was copiously irrigated with bacitracin containing antibiotic solution and pressure was held for hemostasis. Wound was then approximated with interrupted 4-0 nylon sutures and a sterile compression dressing was applied. ESTIMATED BLOOD LOSS: 50 mL. DRAINS: None. SPECIMEN: Right great toe and metatarsal head with cultures sent. JESÚS ROOT MD DR: ALBERTO/jovi JOB#: [id number] / [id number]
[2019-06-16] MEDS: VANCOMYCIN PER PHARMACY MC PRN (01:53)
--- NOTE | 2019-06-16 01:53 | NUR ---
Pharmacy Vancomycin Dosing Note S:Consulted to monitor and dose vancomycin started 06/13/19. O:RITIKA RODAS is a 68 year old M with Cellulitis Osteomyelitis . Height: 5 feet, 10 inches Weight: 136.441722 kg [place] Body Weight: 73.00 Adjusted Body Weight: 98.20 Dosing Weight: Actual Other Antibiotics: MERREM LABS: Last BUN: 20 Last Creatinine: 1.3 Creatinine Clearance: 75 mL/min Last WBC: 9.2 Last Procalcitonin: Tmax (past 24 hours): 98.9 Microbiology: 06/14 PENDING I/O: 550/- 3 VOIDS Drug Levels: Last Trough level: 21.8 on 06/15/19 at 2030 Last dose given 06/15/19 at 0832 Vancomycin Dosing: Loading Dose: x1 Dosing Weight: Actual Target Trough: 15-20 A: Based on: INFECTIOUS DISEASE ORDER P: 1. Continue Vancomycin 1000 mg IV q12h 2. Follow up Trough level on 06/17/19 at 0830 3. Pharmacy will continue to monitor, follow and adjust therapy as needed. LUIS PETERSEN RPH, 06/16/19 0153 Signed: 06/16/19 at 0154 by LUIS PETERSEN RPH PHA
[2019-06-16] MEDS: MEROPENEM 500 MG in IV NORMAL SALINE 50ML 50 ML IV SCH ×2 (02:17→06:25)
[2019-06-16 03:00] VITALS: BP 161/59
[2019-06-16] MEDS: ENOXAPARIN 40 MG/0.4 ML SYRINGE. SQ SCH ×2 (06:25→16:43)
[2019-06-16 07:05] LABS: CREATININE 1.2 mg/dL (0.7-1.3); GFR 60.2
[2019-06-16 07:42] VITALS: BP 143/72
[2019-06-16] MEDS: TAMSULOSIN 0.4 MG CAP.ER.24H. PO SCH (08:06)
[2019-06-16] MEDS: CARVEDILOL 12.5 MG TABLET. PO SCH ×2 (08:06→16:42)
[2019-06-16] MEDS: FINASTERIDE 5 MG TABLET. PO SCH (08:06)
[2019-06-16] MEDS: LISINOPRIL 20 MG TABLET PO SCH (08:07)
[2019-06-16] MEDS: hydrALAZINE 25 MG TABLET PO SCH (08:07)
[2019-06-16] MEDS: VENLAFAXINE 75 MG TABLET. PO SCH (08:08)
[2019-06-16] MEDS: cloNIDine HCL 0.2 MG TABLET PO SCH ×2 (08:08→14:00)
[2019-06-16] MEDS: CHLORTHALIDONE 25 MG TABLET. PO SCH (08:08)
[2019-06-16] MEDS: amLODIPine BESYLATE 10 MG TABLET PO SCH (08:08)
[2019-06-16] MEDS: MULTIVITAMIN with MINERAL TABLET. PO SCH (08:08)
[2019-06-16] MEDS: metFORMIN 500 MG TABLET PO SCH ×2 (08:09→16:42)
--- NOTE | 2019-06-16 08:09 | PDOC ---
Provider Note Provider Note Vascular: S: Pt doing well, reports no pain. Walks well with half shoe. O: VSS, afebrile Alert, oriented, no apparent distress Respirations nonlabored Right foot dressing removed, mildly saturated. Incision clean. dry and intact without surrounding erythema. Mild amount of serosanginous drainage. Skin edges align well. Strong DP pulse on the right POD#1 Right first toe closed ray amputation - Pt doing well, without pain - Cont abx per ID - right forefoot offloading - dry dressing only to incision, keep clean and dry - Ok for discharge from our standpoint once medically stable and abx per ID. He will follow up with us in 2-3 weeks. 07/[address] Root. CAM BARNETT Jun 16, 2019 08:09
[2019-06-16] MEDS: DOCUSATE SODIUM 100 MG CAPSULE. PO SCH (08:12)
[2019-06-16] MEDS: INSULIN LISPRO 300 UNITS/3 ML VIAL. SQ SCH ×3 (08:19→16:43)
--- NOTE | 2019-06-16 09:17 | PDOC ---
PROGRESS NOTES History of Present Illness History of Present Illness VTE Prophylaxis Ordered VTE Prophylaxis Devices: Yes VTE Pharmacological Prophylaxi: Yes DISCHARGE DX Assessment/Plan RT foot DM ulcer/wound r.o osteo Dorsal foot soft tissue swelling. Multiple flexion deformities. acute Osteomyelitis, right metatarsophalangeal joint, greater toe. DM 2 insulin req HTn Lipids Obesity PCN allergy (anaphylaxis age 17) high ESR=78 PLAN cont antibiotics , change to po ok to d/c home 06/16 ID and vasc consults ESR, cbc, BC, SSI high dose, ESR, lactic acid, hgba1c surgery planned 1-30 d/w rn D/C PLANNING 31 MIN Vitals Vitals Vital Signs Date Time Temp Pulse Resp B/P (MAP) Pulse Ox O2 Delivery O2 Flow Rate FiO2 06/16/19 08:08 54 143/72 06/16/19 07:42 98.2 16 96 Room Air 98.2 Physical Exam Physical Exam PHYSICAL EXAMINATION: GENERAL: Alert, oriented gentleman, not in distress. VITAL SIGNS: Stable with a T-max 99.2. HEENT: NAD. NECK: Supple. No JVP, no lymphadenopathy. LUNGS: Clear. HEART: S1, S2 regular. ABDOMEN: Benign. EXTREMITIES: No edema or cyanosis. SKIN: Unremarkable except in the right foot, the big toe is red; has an ulcer on the back of the toe on the plantar surface, where it probes to the bone; there is minimal erythema extending into the foot. Dorsalis pedis is good, palpable. NEUROLOGIC: The patient is alert, awake and appropriate. No focal neurologic deficit. General: Alert, Oriented X3, Cooperative, No acute distress Heart: Regular rate, Normal S1, Normal S2 Lungs: Clear Abdomen: Normal bowel sounds, Soft, No tenderness, No hepatosplenomegaly, No masses Extremities: No clubbing, No cyanosis, Normal pulses, Other (rt foot wound, foul smelling, long toe nails, deep wound prbing thr bone?) Labs LABS Laboratory Tests Test 06/15/19 11:47 06/15/19 14:25 06/15/19 20:14 06/15/19 20:25 Glucose (Fingerstick) 163 mg/dL (70-99) 142 mg/dL (70-99) 240 mg/dL (70-99) Vancomycin Level Trough 21.8 mcg/mL (10.0-20.0) Vancomycin Last Dose Date 06/15/19 Vancomycin Last Dose Time 0900 Test 06/16/19 06:50 06/16/19 07:18 Creatinine 1.2 mg/dL (0.7-1.3) Estimated GFR (Cockcroft-Gault) 60.2 Glucose (Fingerstick) 166 mg/dL (70-99) Review of Systems Review of Systems : 1950 LOC: [address] [place] [address] AGE: 68 SEX: M STATUS: ADM IN LOCATION: [address] [place] [address] DATE OF SURGERY: 06/15/2019 PREOPERATIVE DIAGNOSIS: Osteomyelitis, right metatarsophalangeal joint, greater toe. POSTOPERATIVE DIAGNOSIS: Osteomyelitis, right metatarsophalangeal joint, greater toe. OPERATION PERFORMED: Ray amputation with primary closure. SURGEON: Jesús Root MD ANESTHESIA: General. INDICATION: This is a 68-year-old gentleman, diabetic with an ulcer on the medial aspect of the right great toe, extending into the metatarsophalangeal joint. He has bounding pedal pulses. Comment Review of Relevant I have reviewed the following items kimo (where applicable) has been applied. Labs Laboratory Tests Test 06/14/19 11:29 06/14/19 16:46 06/14/19 20:21 06/15/19 03:55 Glucose (Fingerstick) 210 mg/dL (70-99) 146 mg/dL (70-99) 146 mg/dL (70-99) Creatinine 1.3 mg/dL (0.7-1.3) Estimated GFR (Cockcroft-Gault) 54.9 Test 06/15/19 07:29 06/15/19 11:47 06/15/19 14:25 06/15/19 20:14 Glucose (Fingerstick) 138 mg/dL (70-99) 163 mg/dL (70-99) 142 mg/dL (70-99) 240 mg/dL (70-99) Test 06/15/19 20:25 06/16/19 06:50 06/16/19 07:18 Vancomycin Level Trough 21.8 mcg/mL (10.0-20.0) Vancomycin Last Dose Date 06/15/19 Vancomycin Last Dose Time 0900 Creatinine 1.2 mg/dL (0.7-1.3) Estimated GFR (Cockcroft-Gault) 60.2 Glucose (Fingerstick) 166 mg/dL (70-99) Laboratory Tests Test 06/15/19 11:47 06/15/19 14:25 06/15/19 20:14 06/15/19 20:25 Glucose (Fingerstick) 163 mg/dL (70-99) 142 mg/dL (70-99) 240 mg/dL (70-99) Vancomycin Level Trough 21.8 mcg/mL (10.0-20.0) Vancomycin Last Dose Date 06/15/19 Vancomycin Last Dose Time 0900 Test 06/16/19 06:50 06/16/19 07:18 Creatinine 1.2 mg/dL (0.7-1.3) Estimated GFR (Cockcroft-Gault) 60.2 Glucose (Fingerstick) 166 mg/dL (70-99) Microbiology 06/14/19 Anaerobic/Aerobic Culture, Resulted Pending 06/14/19 Anaerobic Culture Result 1 (JOSHUA), Resulted Pending 06/14/19 Aerobic Culture, Resulted Pending 06/14/19 Aerobic Culture Result 1 (JOSHUA), Resulted Pending 06/14/19 Gram Stain - Final, Resulted 06/14/19 Gram Stain Result 1 (JOSHUA) - Final, Resulted 06/14/19 Gram Stain Result 2 (JOSHUA) - Final, Resulted Medications Current Medications Al Hydroxide/Mg Hydroxide (Mylanta Plus Xs) 30 ml PRN Q3HRS PRN PO HEARTBURN / GAS; Start 06/13/19 at 16:15 Zolpidem Tartrate (Ambien) 5 mg PRN QHS PRN PO INSOMNIA, MAY REPEAT IN 1HR; Start 06/13/19 at 16:15 Morphine Sulfate (Morphine Sulfate) 1 mg PRN Q1HR PRN IV PAIN; Start 06/13/19 at 16:15 Oxycodone HCl (Roxicodone) 10 mg PRN Q4HRS PRN PO MODERATE PAIN, SEVERE PAIN; Start 06/13/19 at 16:15 Acetaminophen (Tylenol) 650 mg PRN Q6HRS PRN PO Headaches, Temp > 101.5F; Start 06/13/19 at 16:15 Docusate Sodium (Colace) 100 mg BID PO ; Start 06/13/19 at 21:00 Magnesium Hydroxide (Milk Of Magnesia) 2,400 mg PRN Q12HR PRN PO CONSTIPATION; Start 06/13/19 at 16:15 Enoxaparin Sodium (Lovenox 40mg Syringe) 40 mg Q24H SQ Last administered on 06/13/19at 18:02; Start 06/13/19 at 17:00; Stop 06/14/19 at 15:43; Status DC Insulin Human Lispro (HumaLOG) 0-9 UNITS TIDWMEALS SQ Last administered on 06/16/19at 08:19; Start 06/13/19 at 17:00 Dextrose (Dextrose 50%-Water Syringe) 12.5 gm PRN Q15MIN PRN IV SEE COMMENTS; Start 06/13/19 at 16:15 Dextrose (Iv Dextrose 5%) 250 ml PRN Q15MIN PRN IV SEE COMMENTS; Start 06/13/19 at 16:15 Vancomycin HCl 250 ml @ 250 mls/hr 1X ONCE IV Last administered on 06/13/19at 18:03; Start 06/13/19 at 16:15; Stop 06/13/19 at 17:14; Status DC Meropenem 1 gm/ Sodium Chloride 100 ml @ 200 mls/hr Q8HRS IV ; Start 06/13/19 at 22:00; Stop 06/13/19 at 17:12; Status DC Aztreonam (Azactam) 1 gm Q8HRS IVP Last administered on 06/14/19at 05:58; Start 06/13/19 at 17:00; Stop 06/14/19 at 10:17; Status DC Amlodipine Besylate (Norvasc) 10 mg DAILY PO Last administered on 06/16/19at 08:08; Start 06/14/19 at 09:00 Chlorthalidone (Thalitone) 25 mg DAILY PO Last administered on 06/16/19at 08:08; Start 06/14/19 at 09:00 Clonidine HCl (Catapres) 0.2 mg TID PO Last administered on 06/16/19at 08:08; Start 06/13/19 at 21:00 Diltiazem HCl (Cardizem 24hr Cd) 120 mg DAILY PO Last administered on 06/16/19at 08:05; Start 06/14/19 at 09:00 Finasteride (Proscar) 5 mg DAILY PO Last administered on 06/16/19 08:06; Start 06/14/19 at 09:00 Hydralazine HCl (Apresoline) 25 mg BID PO Last administered on 06/16/19 08:07; Start 06/13/19 at 21:00 Tamsulosin HCl (Flomax) 0.4 mg DAILY PO Last administered on 06/16/19 08:06; Start 06/14/19 at 09:00 Venlafaxine HCl (Effexor) 75 mg BID PO Last administered on 06/16/19 08:08; Start 06/13/19 at 21:00 Lisinopril (Prinivil) 40 mg DAILY PO Last administered on 06/16/19 08:07; S tart 06/14/19 at 09:00 Carvedilol (Coreg) 25 mg BIDWMEALS PO Last administered on 06/16/19 08:06; Start 06/13/19 at 18:00 Insulin Glargine (Lantus Syringe) 80 unit QHS SQ Last administered on 06/15/19 21:33; Start 06/13/19 at 21:00 Atorvastatin Calcium (Lipitor) 5 mg QHS PO Last administered on 06/15/19 21:17; Start 06/13/19 at 21:00 Metformin HCl (Glucophage) 1,000 mg BIDWMEALS PO Last administered on 06/16/19 08:09; Start 06/13/19 at 18:00 Vancomycin HCl (Vanco Per Pharmacy) 1 each PRN DAILY PRN MC SEE COMMENTS Last administered on 06/16/19at 01:53; Start 06/14/19 at 08:45 Vancomycin HCl 2 gm/Sodium Chloride 500 ml @ 250 mls/hr Q12H IV Last administered on 06/15/19 08:32; Start 06/14/19 at 09:00; Stop 06/15/19 at 09:18; Status DC Vancomycin HCl (Vancomycin Trough Level) 1 each 1X ONCE MC Last administered on 06/15/19 20:30; Start 06/15/19 at 20:30; Stop 06/15/19 at 20:31; Status DC Multivitamins (Thera M Plus) 1 tab DAILY PO Last administered on 06/16/19 08:08; Start 06/14/19 at 12:00 Meropenem 500 mg/ Sodium Chloride 50 ml @ 100 mls/hr Q8HRS IV Last administered on 06/16/19at 06:25; Start 06/14/19 at 12:00 Enoxaparin Sodium (Lovenox 40mg Syringe) 40 mg Q12H SQ Last administered on 06/16/19at 06:25; Start 06/14/19 at 17:00 Ondansetron HCl (Zofran) 4 mg PRN Q6HRS PRN IV NAUSEA/VOMITING; Start 06/15/19 at 07:00; Stop 06/16/19 at 06:59; Status DC Fentanyl Citrate (Fentanyl 2ml Vial) 25 mcg PRN Q5MIN PRN IV MILD PAIN 1-3; Start 06/15/19 at 07:00; Stop 06/16/19 at 06:59; Status DC Fentanyl Citrate (Fentanyl 2ml Vial) 50 mcg PRN Q5MIN PRN IV MODERATE TO SEVERE PAIN; Start 06/15/19 at 07:00; Stop 06/16/19 at 06:59; Status DC Morphine Sulfate (Morphine Sulfate) 1 mg PRN Q10MIN PRN IV SEVERE PAIN 7-10; Start 06/15/19 at 07:00; Stop 06/16/19 at 06:59; Status DC Ringer's Solution 1,000 ml @ 30 mls/hr Q24H IV ; Start 06/15/19 at 07:00; Stop 06/15/19 at 18:59; Status DC Hydromorphone HCl (Dilaudid) 0.5 mg PRN Q10MIN PRN IV SEV PAIN, Second choice; Start 06/15/19 at 07:00; Stop 06/16/19 at 06:59; Status DC Prochlorperazine Edisylate (Compazine) 5 mg PACU PRN PRN IV NAUSEA, MRX1; Start 06/15/19 at 07:00; Stop 06/16/19 at 06:59; Status DC Insulin Human Lispro (HumaLOG VIAL for OP,RR ONLY) 0-10 units PRN Q1HR PRN SQ PER PROTOCOL; Start 06/14/19 at 16:00; Stop 06/15/19 at 15:59; Status DC Vancomycin HCl 1 gm/Sodium Chloride 250 ml @ 250 mls/hr Q12H IV Last administered on 06/15/19at 21:20; Start 06/15/19 at 21:00 Ondansetron HCl (Zofran) 4 mg STK-MED ONCE .ROUTE ; Start 06/15/19 at 12:05; Stop 06/15/19 at 12:05; Status DC Propofol 20 ml @ As Directed STK-MED ONCE IV ; Start 06/15/19 at 12:05; Stop 06/15/19 at 12:05; Status DC Lidocaine HCl (Lidocaine Pf 2% Vial) 5 ml STK-MED ONCE .ROUTE ; Start 06/15/19 at 12:05; Stop 06/15/19 at 12:05; Status DC Dexamethasone Sodium Phosphate (Decadron) 4 mg STK-MED ONCE .ROUTE ; Start 06/15/19 at 12:05; Stop 06/15/19 at 12:05; Status DC Bacitracin 36115 unit/Sodium Chloride 250 ml @ 250 mls/hr 1X ONCE IRR Last administered on 06/15/19at 13:15; Start 06/15/19 at 13:00; Stop 06/15/19 at 13:59; Status DC Phenylephrine HCl (PHENYLEPHRINE in 0.9% NACL PF) 1 mg STK-MED ONCE IV ; Start 06/15/19 at 12:59; Stop 06/15/19 at 13:00; Status DC Sevoflurane (Ultane) 30 ml STK-MED ONCE IH ; Start 06/15/19 at 12:59; Stop 06/15/19 at 13:00; Status DC Bupivacaine HCl (Sensorcaine Mpf 0.25%) 30 ml STK-MED ONCE .ROUTE Last administered on 06/15/19at 13:35; Start 06/15/19 at 13:02; Stop 06/15/19 at 13:02; Status DC Vancomycin HCl (Vancomycin Trough Level) 1 each 1X ONCE MC ; Start 06/17/19 at 08:30; Stop 06/17/19 at 08:31 Active Scripts Active Reported Clopidogrel (Clopidogrel Bisulfate) 75 Mg Tablet 75 Mg PO DAILY Amlodipine Besylate 10 Mg Tablet 10 Mg PO DAILY Chlorthalidone 25 Mg Tablet 25 Mg PO DAILY Carvedilol 25 Mg Tablet 25 Mg PO BID Hydralazine Hcl 25 Mg Tablet 25 Mg PO BID Toudavid Solostar (Insulin Glargine,Hum.rec.anlog) 300 Unit/1 Ml Insuln.pen 80 Unit SQ HS Tamsulosin Hcl 0.4 Mg Cap.er.24h 0.4 Mg PO DAILY Finasteride 5 Mg Tablet 5 Mg PO DAILY Venlafaxine Hcl 75 Mg Tablet 75 Mg PO BID Metformin Hcl 1,000 Mg Tablet 1,000 Mg PO BID Lovastatin 40 Mg Tablet 20 Mg PO HS Diltiazem 24HR Cd (Diltiazem Hcl) 120 Mg Cap.er.24h 120 Mg PO DAILY Clonidine Hcl 0.2 Mg Tablet 0.2 Mg PO TID Benazepril Hcl 40 Mg Tablet 40 Mg PO DAILY Vitals/I & O Vital Sign - Last 24 Hours 06/15/19 06/15/19 06/15/19 06/15/19 11:35 13:47 14:02 14:17 Temp 98.1 98.1 Pulse 67 99 68 71 Resp 20 B/P (MAP) 148/81 156/65 108/94 160/89 Pulse Ox 97 99 96 97 O2 Delivery Room Air Room Air Room Air Room Air 06/15/19 06/15/19 06/15/19 06/15/19 14:32 14:56 14:56 16:50 Temp 97.8 97.8 Pulse 72 72 72 72 Resp 20 B/P (MAP) 165/83 165/83 165/83 165/83 Pulse Ox 94 O2 Delivery Room Air 06/15/19 06/15/19 06/15/19 06/15/19 16:52 17:00 17:15 17:30 Pulse 80 83 82 78 B/P (MAP) 137/79 (98) 154/76 (102) Pulse Ox 94 90 90 94 06/15/19 06/15/19 06/15/19 06/15/19 19:00 20:00 21:18 21:18 Temp 99.4 99.4 Pulse 55 55 55 Resp 16 B/P (MAP) 133/53 (79) 133/53 133/53 Pulse Ox 92 O2 Delivery Room Air Room Air 06/15/19 06/16/19 06/16/19 06/16/19 23:00 03:00 07:42 08:05 Temp 99.4 97.0 98.2 99.4 97.0 98.2 Pulse 75 81 54 54 Resp 18 16 16 B/P (MAP) 157/64 (95) 161/59 (93) 143/72 (95) 143/72 Pulse Ox 96 95 96 O2 Delivery Room Air Room Air Room Air 06/16/19 06/16/19 06/16/19 06/16/19 08:06 08:07 08:07 08:08 Pulse 54 54 54 54 B/P (MAP) 143/72 143/72 143/72 143/72 06/16/19 08:08 Pulse 54 B/P (MAP) 143/72 Intake and Output 06/15/19 06/15/19 06/16/19 15:00 23:00 07:00 Intake Total 800 ml 900 ml Output Total 50 ml Balance 750 ml 900 ml TYLER HILL MD Jun 16, 2019 09:17
--- NOTE | 2019-06-16 09:24 | NUR ---
SW following. Discussed with RN, pt had surgery yesterday, no wound vac needed. Pt has off loading shoe. Awaiting confirmation of whether pt needs IV abx or not. Possible discharge home today with self care. SW will continue to follow.
--- NOTE | 2019-06-16 09:44 | PDOC ---
Infectious Disease Note Subjective Subjective pt is feeling better, had closed amputation ROS ROS no n/v/d/sob Vital Sign Vital Signs Vital Signs Date Time Temp Pulse Resp B/P (MAP) Pulse Ox O2 Delivery O2 Flow Rate FiO2 06/16/19 08:08 54 143/72 06/16/19 07:42 98.2 16 96 Room Air 98.2 Physical Exam PHYSICAL EXAM PHYSICAL EXAMINATION: GENERAL: Alert, oriented gentleman, not in distress. VITAL SIGNS: Stable with a T-max 99.2. HEENT: NAD. NECK: Supple. No JVP, no lymphadenopathy. LUNGS: Clear. HEART: S1, S2 regular. ABDOMEN: Benign. EXTREMITIES: No edema or cyanosis. SKIN: Unremarkable except in the right foot, the big toe is red; has an ulcer on the back of the toe on the plantar surface, where it probes to the bone; there is minimal erythema extending into the foot. Dorsalis pedis is good, palpable. NEUROLOGIC: The patient is alert, awake and appropriate. No focal neurologic deficit. Labs Lab Laboratory Tests Test 06/15/19 11:47 06/15/19 14:25 06/15/19 20:14 06/15/19 20:25 Glucose (Fingerstick) 163 mg/dL (70-99) 142 mg/dL (70-99) 240 mg/dL (70-99) Vancomycin Level Trough 21.8 mcg/mL (10.0-20.0) Vancomycin Last Dose Date 06/15/19 Vancomycin Last Dose Time 0900 Test 06/16/19 06:50 06/16/19 07:18 Creatinine 1.2 mg/dL (0.7-1.3) Estimated GFR (Cockcroft-Gault) 60.2 Glucose (Fingerstick) 166 mg/dL (70-99) Micro Microbiology 06/14/19 Anaerobic/Aerobic Culture, Resulted Pending 06/14/19 Anaerobic Culture Result 1 (JOSHUA), Resulted Pending 06/14/19 Aerobic Culture, Resulted Pending 06/14/19 Aerobic Culture Result 1 (JOSHUA), Resulted Pending 06/14/19 Gram Stain - Final, Resulted 06/14/19 Gram Stain Result 1 (JOSHUA) - Final, Resulted 06/14/19 Gram Stain Result 2 (JOSHUA) - Final, Resulted Objective Assessment IMPRESSION: 1. Right big toe osteomyelitis. ( probes to bone ) s/p closed amputation 2. Diabetes. 3. Right big toe and foot cellulitis. 4. Hypertension. 5. Hyperlipidemia. Plan Plan of Care cont antibiotics , change to po ok to d/c home CHIDI LORENZO MD Jun 16, 2019 09:44
[2019-06-16 11:12] VITALS: BP 108/48
--- NOTE | 2019-06-16 11:12 | NUR ---
Wound Care: Follow up with patient s/p closed amputation of R great toe by Dr. Root on 06/15/2019. Pt denies pain. Incision pictured and measured, probable DC to home today. Provided education to pt regarding dressing changes, home care, offloading, and personal hygiene (see discharge paperwork for details). Incision well approximated with sutures, oozing light red serosanguinous fluid with quarter sized drainage on outside of dressing prior to removal (placed 0800 06/16/19). Covered with dry ABDs and kerlix. Recommended to change daily while drainage persists and avoid showers, then may defer to surgeons recommendation to leave [employer]. No follow up needed at this time.
[2019-06-16] MEDS ORDERED: DOCU-153 PO (13:16)
[2019-06-16] MEDS ORDERED: ACET325T9 PO (13:16)
[2019-06-16] MEDS ORDERED: LACT1CAP19 PO (13:16)
[2019-06-16] MEDS ORDERED: CEFD300C PO (13:16)
[2019-06-16] MEDS ORDERED: MAG30ORA2 PO (13:16)
[2019-06-16] MEDS ORDERED: DOXY100T PO (13:16)
[2019-06-16] MEDS ORDERED: MULT1TAB90 PO (13:16)
--- NOTE | 2019-06-16 13:17 | DISCH ---
DISCHARGE INSTRUCTIONS Condition on Discharge Condition on Discharge: Stable Activity After Discharge Activity Instructions for Disc: Activity as tolerated Bathing Instructions: Shower-keep dressing dry Lifting Instructions after Dis: No heavy lifting, No pulling or pushing Driving Instructions after Dis: Do not drive Diet after Discharge Diet after Discharge: Diabetic No Calorie Level Liquid Texture: Thin Liquid Checks after Discharge Checks after discharge: Check blood press - daily Contacting the DR. after DC Call your doctor for: If your condition worsens TYLER HILL MD Jun 16, 2019 13:17
[2019-06-16 15:24] VITALS: BP 115/53
[2019-06-16] MEDS ORDERED: CEFDINIR 300 MG CAPSULE PO SCH (21:00)
[2019-06-16] MEDS ORDERED: DOXYCYCLINE HYCLATE 100 MG TABLET PO SCH (21:00)
[2019-06-16] MEDS ORDERED: LACTOBACILLUS RHAMNOSUS GG 1 CAPSULE. PO SCH (21:00)
== END 2019-06-16 16:55 | disposition home or self-care (01) | DRG 617 ==
LOC: 4 NORTH 15:04
PROVIDERS: ADMIT Internal Medicine; ATTEND Internal Medicine
PROC: 0Y6P0Z0 Detachment at Right 1st Toe, Complete, Open Approach (ICD-10-PCS; principal; 2019-06-15 12:00)
DX: E11.621 Type 2 diabetes mellitus with foot ulcer (principal); E11.52 Type 2 diabetes mellitus with diabetic peripheral angiopathy with gangrene; L03.115 Cellulitis of right lower limb; M86.8X7 Other osteomyelitis, ankle and foot; Z68.41 Body mass index [BMI] 40.0-44.9, adult; I96 Gangrene, not elsewhere classified; I10 Essential (primary) hypertension; E78.5 Hyperlipidemia, unspecified; E11.69 Type 2 diabetes mellitus with other specified complication; L97.519 Non-pressure chronic ulcer of other part of right foot with unspecified severity; E66.9 Obesity, unspecified; Z88.0 Allergy status to penicillin; Z86.73 Personal history of transient ischemic attack (TIA), and cerebral infarction without residual deficits; Z82.49 Family history of ischemic heart disease and other diseases of the circulatory system; E11.628 Type 2 diabetes mellitus with other skin complications
CPT/HCPCS: 36415; 73620; 80048; 80202; 82565; 82962; 83036; 85025; 85610; 85651; 87071; 87075; 93005; A7015; J1100; J1650; J1815; J2001; J2185; J2370; J2405; J2704; J3370; J3490; J7040; J7050; A4461; G0378; J7030